=== PATIENT | female | born 1965 | race Caucasian/White ===

== ENCOUNTER 2021-12-09 07:23 | Outpatient (CLI) | payer BC, SELFPAY ==
[2021-12-09 15:07] LABS: Potassium* 4.1 mmol/L (3.6-5.1)
== END 2021-12-09 07:24 | disposition home or self-care (01) ==
PROVIDERS: PCP Physician Assistant Medical; Visit Provider Physician Assistant Medical
DX: E87.5 Hyperkalemia (principal); E78.5 Hyperlipidemia, unspecified
CPT/HCPCS: 84132

== ENCOUNTER 2022-01-30 15:00 | Outpatient (CLI) | payer BC, SELFPAY ==
--- NOTE | 2022-01-30 15:20 | CRLHL7_ITS ---
For Patients: As a result of the Century Cures Act, medical imaging exams and procedure reports are released immediately into your electronic medical record. You may view this report before your referring provider. If you have questions, please contact your health care provider. BILATERAL SCREENING MAMMOGRAM WITH COMPUTER-AIDED DETECTION AND TOMOSYNTHESIS TECHNIQUE: CC and MLO views were obtained. These mammographic images have been obtained using full-field digital technique. These mammographic images were interpreted with the benefit of computer-aided detection. Breast Tomosynthesis was used in this interpretation. COMPARISON FILM: 01/29/20 Diagnostic, 01/22/21 screen, 12/28/19 screen. FINDINGS: There are scattered areas of fibroglandular density IMPRESSION: There is no radiographic evidence for malignancy. ASSESSMENT: BI-RADS Category 2: Benign RECOMMENDATION: Routine screening mammogram in 1 year. A lay language report of this examination will be provided to the patient. Alin Paredes M.D. Diagnostic Radiologist [email or web address] RENETTA/Dictated by: Alin Paredes MD @ 01/31/2022 8:51:00 AM (Electronically Signed)
== END 2022-01-30 15:01 | disposition home or self-care (01) ==
LOC: MAMMO 15:00
PROVIDERS: PCP Physician Assistant Medical; Visit Provider Physician Assistant Medical
DX: Z12.31 Encounter for screening mammogram for malignant neoplasm of breast (principal)
CPT/HCPCS: 77063; 77067

== ENCOUNTER 2022-02-27 14:45 | Outpatient (RCR) | payer BC, SELFPAY ==
[2021-11-28 08:43] LABS: Hemoglobin* 13.8 gm/dL (12.0-16.0); Mean Corpuscular HGB Conc 34 gm/dL (32-36); Mean Corpuscular Hemoglobin 30 pg (26-34); Mean Corpuscular Volume 90 fL (80-100); Platelet Count* 244 K/uL (140-440); Red Blood Count 4.56 m/uL (4.00-5.20); White Blood Count* 4.91 K/uL (4.50-11.00)
[2021-11-28 08:47] LABS: Slide Review Reflex No
[2021-11-28 09:34] LABS: Albumin* 4.4 g/dL (3.3-5.0); Chloride* 106 mmol/L (96-114); Potassium* 5.2 mmol/L (3.6-5.1); Sodium* 144 mmol/L (135-149)
[2021-11-28 09:36] LABS: Cholesterol* 172 mg/dL (90-199)
[2021-11-28 09:37] LABS: Alanine Aminotransferase* 25 U/L (4-35); Alkaline Phosphatase* 89 U/L (40-150); Aspartate Amino Transferase* 25 U/L (12-35); Bilirubin Total* 0.5 mg/dL (0.1-1.5); Blood Urea Nitrogen* 14 mg/dL (7-30); Calcium* 10.2 mg/dL (8.4-10.6); Carbon Dioxide* 30 mmol/L (20-32); Creatinine* 0.8 mg/dL (0.5-1.5); Estimated Glomerular Filt Rate 86 ml/min; Glucose* 97 mg/dL (60-115); HDL Cholesterol* 47 mg/dL (>=50); LDL Cholesterol Calculated 81 mg/dL (<100); Total Protein* 6.9 g/dL (6.0-8.3); Triglycerides* 221 mg/dL (40-149)
--- NOTE | 2022-02-19 16:47 | ONC.NURNOTE ---
Pt took last pill of Anastrazole last night; called for refill today. She RTC next . Kelsea Mejias APRN to call in refill to bridge her to that appt; pt to call us back if any issues refilling.
== END 2022-05-27 23:59 | disposition home or self-care (01) ==
LOC: CCIC 14:45
PROVIDERS: PCP Physician Assistant Medical; Visit Provider Nurse Practitioner Family
DX: C50.912 Malignant neoplasm of unspecified site of left female breast (principal); Z17.0 Estrogen receptor positive status [ER+]; Z79.811 Long term (current) use of aromatase inhibitors
CPT/HCPCS: 36415; 80053; 80061; 85027; 99212; 99214

== ENCOUNTER 2023-01-02 07:45 | Outpatient (CLI) | payer BC, SELFPAY | END 2023-01-02 07:46 | disposition home or self-care (01) | LOC: NFLDREF 13:11 | PROVIDERS: PCP Physician Assistant Medical; Referring Provider Physician Assistant Medical; Visit Provider Physician Assistant Medical | DX: Z00.00 Encounter for general adult medical examination without abnormal findings (principal); C50.912 Malignant neoplasm of unspecified site of left female breast; E78.2 Mixed hyperlipidemia; I10 Essential (primary) hypertension | CPT/HCPCS: 80053; 80061; 84443 ==

== ENCOUNTER 2023-03-16 14:10 | Outpatient (RCR) | payer BC, SELFPAY | END 2023-03-31 23:59 | disposition home or self-care (01) | LOC: CCIC 14:10 | PROVIDERS: PCP Physician Assistant Medical; Visit Provider Physician Assistant | DX: C50.912 Malignant neoplasm of unspecified site of left female breast (principal); Z17.0 Estrogen receptor positive status [ER+]; Z79.811 Long term (current) use of aromatase inhibitors; Z90.13 Acquired absence of bilateral breasts and nipples; D05.11 Intraductal carcinoma in situ of right breast; M19.90 Unspecified osteoarthritis, unspecified site; R59.1 Generalized enlarged lymph nodes | CPT/HCPCS: 99212; 99213; 99214; 99215 ==

== ENCOUNTER 2023-09-24 12:43 | Outpatient (CLI) | payer BC, SELFPAY ==
--- OUTSIDE RECORDS SUMMARY | 2023-09-24 12:45 | XMS_ITS | Encounter Summary ---
Author Organization [facility] Address [address] [place] [address] Care Team Providers Care Cyber Policy And Strategy Planner Name Role Phone Elsewhere, Pcp Primary Care Provider Unavailabl e Encounter Details Date Type Department Care Team (Latest Contact Info) Description 08/04/2023 12:00 PM CDT Ancillary Procedure Department of Plastic and Reconstructive Surgery Social History Tobacco Use Types Packs/Day Years Used Date Smoking Tobacco: Never Smokeless Tobacco: Never Alcohol Use Standard Drinks/Week Comments Not Currently 0 (1 standard drink = 0.6 oz pur e alcohol) No alcohol since June 2022 Humiliation, Afraid, Rape, and Kick questionnair e Answer Date Recorded Within the last year, have y ou been afraid of your partner or ex-partner? No 09/04/2022 Within the last year, have y ou been humiliated or emotionally abused in other ways by your partner or ex-partner? No Within the last year, have y ou been kicked, hit, slapped, or otherwise physically hurt by your partner or ex-partner? No 09/04/2022 Within the last year, have y ou been raped or forced to have any kind of sexual activity by your partner or ex-partner? No 09/04/2022 Social Connection and Isolation Panel [NHANES] A nswer Date Recorded In a typical week, how many times do you talk on the phone with family, friends, or neighbors? Once a week 06/17/2022 How often do you get togethe r with friends or relatives? Once a week 06/17/2022 How often do you attend sikhism or jew serv ices? Patient declined 06/17/2022 Do you belong to any clubs o r organizations such as sikhism groups, unions, fraternal or athletic groups, or school groups? Yes 06/17/2022 How often do you attend meet ings of the clubs or organizations you belong to? Patient declined 06/17/2022 Are you , , di vorced, , never , or living with a partner? 06/17/2022 AUDIT-C Answer Date Recorded Q1: How often do you have a drink containing alc ohol? 2-4 times a month 06/17/2022 Q2: How many drinks containi ng alcohol do you have on a typical day when you are drinking? 1 or 2 06/17/2022 Q3: How often do you have si x or more drinks on one occasion? Never 06/17/2022 Overall Financial Resource Strain (CARDIA) Answe r Date Recorded How hard is it for you to pa y for the very basics like food, housing, medical care, and heating? Not hard at all 09/04/2022 [facility] - Occupational Stress Questionnaire Answer Date Recorded Do you feel stress - tense, restless, nervous, or anxious, or unable to sleep at night because your mind is troubled all the time - these days? Only a little 06/17/2022 Exercise Vital Sign Answer Date Recorde d On average, how many days pe r week do you engage in moderate to strenuous exercise (like a brisk walk)? 4 days 06/17/2022 On average, how many minutes do you engage in exercise at this level? 60 min 06/17/2022 Hunger Vital Sign Answer Date Recorded Within the past 12 months, y ou worried that your food would run out before you got the money to buy more. Never true 09/05/19 23 Within the past 12 months, t he food you bought just didn't last and you didn't have money to get more. Never true 09/04/2022 PRAPARE - Transportation Answer Date Re corded In the past 12 months, has l ack of transportation kept you from medical appointments or from getting medications? No 08/12 In the past 12 months, has l ack of transportation kept you from meetings, work, or from getting things needed for daily living? No 09/04/2022 Nutrition Answer Date Recorded Nutrition: EVOO Fat Source Yes 06/17 On average, how many serving s of fruits and vegetables do you eat per day (serving size is equal to 1 cup or approximately the size of a tennis ball)? 2-3 06/17/2022 Dental Answer Date Recorded Dental: Regular Dentist Yes 08/12/19 Employment Answer Date Recorded Employment status Employed and actively working without restrictions 06/17/2022 Housing Stability Answer Date Recorded What is your living situation today? I have a [facility] place to live 09/04/2022 Education Answer Date Recorded What is the highest level of school you have completed or the highest degree you have received? 12th grade 08/11/2021 Sex and Gender Information Value Date Recorded Sex Assigned at Female 08/11/2021 11:57 AM CDT Gender Identity Female 08/11/2021 11:57 AM CDT Sexual Orientation Straight 08/11/2021 11 :57 AM CDT documented as of this encounter Plan of Treatment Upcoming Encounters Date Type Department Care Team (Late st Contact Info) Description 09/30/2023 8:00 AM CDT Procedure visit Division of Plastic Surgery in [place], [place] [address] [place] [address] Jackie Lees M.D. [address] [place] [address] documented as of this encounter Procedures Procedure Name Priority Date/Time Associated Diagnosis Comments PLASTIC AND RECON SURGERY IMAGE EXAM Routine 08/04/2023 12:00 PM CDT documented in this encounter Results * Breast-Plastic And Recon Surgery Image Exam (08/04/2023 12:00 PM CDT) 08/04/2023 12:0 0 PM CDT Narrative IIMS - 08/04/2023 2:13 PM CDT This order has been created and auto-finalized to support the import of images acquired without order. The clinical documentation to support these images can be found on the encounter that produced images. Provider Not In System IMG NON RAD IMAGI NG PROCEDURES IIMS NA documented in this encounter Visit Diagnoses Not on filedocumented in this encounter Care Teams Cyber Policy And Strategy Planner Relationship Specialty Start Date End Date Elsewhere, Pcp PCP - General Internal Medicine 10/28/21 documented as of this encounter
--- OUTSIDE RECORDS SUMMARY | 2023-09-24 12:45 | XMS_ITS | Referral Summary ---
Author Organization [facility] Address [address] [place] [address] Care Team Providers Care Ramp Service Employee Name Role Phone Elsewhere, Pcp Primary Care Provider Unavailabl e Source Comments Patient records contain information from all sites at [facility]. For routine questions regarding patient records, call [phone] during business hours, M-F 8:00 AM - 5:00 PM Central Time. Record requests for emergency care only can be directed to [phone] at any time.[facility] Encounters Date Type Department Care Team Description 08/04/2023 12:00 PM CDT Ancillary Procedure Department of Plastic and Reconstructive Surgery 08/04/2023 12:45 PM CDT [facility] in [place], [place] [address] [place] [address] Jackie Lees M.D. Absence Of Breast Acquired Bilateral (Primary Dx) from Last 3 Months Allergies Active Allergy Reactions Criticality Noted Date Comments Pollen Extracts Other (see comments) Low 08/14/2021 Runny nose, itchy eyes Sulfa (Sulfonamide Antibiotics) Rash Low 02/22/2018 Medications Medication Sig Dispensed Refills Start Date End Date Status atorvastatin (LIPITOR) 10 mg tablet Take 10 mg by mouth at bedtime. 06/17/2021 Active cetirizine (ZyrTEC) 10 mg tablet Take 10 mg by mouth daily. Active hydroCHLOROthiazide (HYDRODIURIL) 12.5 mg tablet Take 12.5 mg by mouth daily. 06/04/2021 Active losartan (COZAAR) 50 mg tablet Take 50 mg by mouth daily. 05/14/2021 Active xsuhehjlpwhj-Lq-lyar- minerals tablet Take 1 tablet by mouth daily. Active fluticasone propionate (FLONASE) 50 mcg/actuation nasal spray Administer 1 spray into each nostril as needed for rhinitis or allergies. Active anastrozole (ARIMIDEX) 1 mg tablet Take 1 tablet (1 mg total) by mouth daily. Hold for 2 weeks after surgery 0 07/25/2022 Active calcium carbonate 1,500 mg (600 mg calcium) tablet Take 600 mg of calcium by mouth daily with breakfast. Active aspirin [address] tablet Take 1 tablet (81 mg total) by mouth daily. Hold for 48 hours after surgery 03/20/2023 Active ondansetron ODT (ZOFRAN-ODT) 4 mg disintegrating tablet Dissolve 1 tablet (4 mg total) in the mouth every 8 (eight) hours as needed for nausea or vomiting. 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 on 07/16/2021 Immunizations Name Administration Dates Next Due RZV (SHINGRIX) 02/01/2021,11/17/2020 SARS-COV-2 (COVID-19) - MODERNA(Discontinued) 04/18/2021 Td (Adult), adsorbed 11/25/2018 Tdap 09/25/2008 influenza vaccine quad (FLUZONE/FLUARIX) (6 months and older)(PF) 01/09/2021,12/30/2019,02/18/2018, 017,01/31/2016,01/26/2015,02/11/2013,,01/21/2011,02/14/2009 Social History Tobacco Use Types Packs/Day Years Used Date Smoking Tobacco: Never Smokeless Tobacco: Never Tobacco Cessation:Counseling Given: Not Answered Alcohol Use Standard Drinks/Week Comments Not Currently [...] week 06/17/2022 How often do you attend buddhism or islam serv ices? Patient declined 06/17/2022 Do you belong to any clubs o r organizations such as buddhism groups, unions, fraternal or athletic groups, or [...] and heating? Not hard at all 09/04/2022 [facility]at [facility] - Occupational Stress [...] your living situation today? I [place] a [facility] [place] place to live 09/04/2022 Education Answer Date Recorded What is the highest level of school you have completed or the highest degree you have received? 12th grade 08/11/2021 Sex and Gender Information Value Date Recorded Sex Assigned at Female 08/11/2021 11:57 AM CDT Gender Identity Female 08/11/2021 11:57 AM CDT Sexual Orientation Straight 08/11/2021 11 :57 AM CDT Last Filed Vital Signs Vital Sign Reading Time Taken Comments Blood Pressure 137/81 03/20/2023 3:49 PM RAILCAR SWITCHER Pulse 87 03/20/2023 3:49 PM RAILCAR SWITCHER Temperature 37.3 ??C (99.1 ??F) 03/20/2023 3:49 PM CS T Respiratory Rate 16 03/20/2023 3:49 PM RAILCAR SWITCHER Oxygen Saturation 95% 03/20/2023 3:49 PM RAILCAR SWITCHER Inhaled Oxygen Concentration - - Weight 75.9 kg (167 lb 5.3 oz) 03/20/2023 6:24 A M RAILCAR SWITCHER Height 163 cm (5' 4.17) 03/20/2023 6:24 AM RAILCAR SWITCHER Body Mass Index 28.57 03/20/2023 6:24 AM RAILCAR SWITCHER Plan of Treatment Upcoming Encounters Date Type Department Care Team (Late st Contact Info) Description 09/30/2023 8:00 AM CDT Procedure visit Division of Plastic Surgery in [place], [place] [address] [place] [address] Jackie Lees M.D. [address] [place] [address] Medical Devices Implanted Type Area Fold Skiver Device Identifier Shelf Expiration Date Model / Serial / Lot Clp Odessa Ti Spr Mcr 1.5 - [id number] Implanted:Qty : 1 on 07/23/2022 by Jackie Lees M.D. at [facility] Hardware e.g. pins/screws /rods [employer] [id number] / / Clp Odessa Ti Spr Mcr 1.5 - [id number] Implanted:Qty : 1 on 07/23/2022 by Jackie Lees M.D. at [facility] Hardware e.g. pins/screws /rods [employer] [id number] / / Clp Odessa Ti Spr Mcr 1.5 - [id number] Implanted:Qty : 1 on 07/23/2022 by Jackie Lees M.D. at [facility] Hardware e.g. pins/screws /rods [employer] [id number] / / Clp Odessa Ti Spr Mcr 1.5 - [id number] Implanted:Qty : 1 on 07/23/2022 by Jackie Lees M.D. at [facility] Hardware e.g. pins/screws /rods [employer] [id number] / / Clp Odessa Ti Spr Mcr 1.5 - [id number] Implanted:Qty : 1 on 07/23/2022 by Jackie Lees M.D. at [facility] Hardware e.g. pins/screws /rods [employer] [id number] / / Clp Odessa Ti Spr Mcr 1.5 - [id number] Implanted:Qty : 1 on 07/23/2022 by Jackie Lees M.D. at [facility] Hardware e.g. pins/screws /rods [employer] [id number] / / Clp Odessa Ti Spr Mcr 1.5 - [id number] Implanted:Qty : 1 on 07/23/2022 by Jackie Lees M.D. at [facility] Hardware e.g. pins/screws /rods [employer] [id number] / / Clp Odessa Ti Spr Mcr 1.5 - [id number] Implanted:Qty : 1 on 07/23/2022 by Jackie Lees M.D. at [facility] Hardware e.g. pins/screws /rods [employer] [id number] / / Clp Hrzn Ti 24 Clp Md Ck - [id number] Implanted:Qty : 1 on 07/23/2022 by Jackie Lees M.D. at [facility] Hardware e.g. pins/screws /rods [employer] [id number] / / Clp Hrzn Ti 24 Clp Sm Red - [id number] Implanted:Qty : 1 on 07/23/2022 by Jackie Lees M.D. at [facility] Hardware e.g. pins/screws /rods [employer] [id number] / / Clp Odessa Ti Mcr - [id number] Implanted:Qty : 1 on 07/23/2022 by Jackie Lees M.D. at [facility] Hardware e.g. pins/screws /rods [employer] [id number] / / Clp Hrzn Ti 24 Clp Sm Red - [id number] Implanted:Qty : 1 on 07/23/2022 by Jackie Lees M.D. at [facility] Hardware e.g. pins/screws /rods [employer] [id number] / / Clp Hrzn Ti 24 Clp Sm Red - [id number] Implanted:Qty : 1 on 07/23/2022 by Jackie Lees M.D. at [facility] Hardware e.g. pins/screws /rods [employer] [id number] / / Clp Hrzn Ti 24 Clp Sm Red - [id number] Implanted:Qty : 1 on 07/23/2022 by Jackie Lees M.D. at [facility] Hardware e.g. pins/screws /rods [employer] [id number] / / Clp Odessa Ti Mcr - [id number] Implanted:Qty : 1 on 07/23/2022 by Jackie Lees M.D. at [facility] Hardware e.g. pins/screws /rods [employer] [id number] 10/10/2026 [id number] / / [id number] Clp Odessa Ti Mcr - [id number] Implanted:Qty : 1 on 07/23/2022 by Jackie Lees M.D. at [facility] Hardware e.g. pins/screws /rods [employer] [id number] 10/10/2026 [id number] / / [id number] Clp Odessa Ti Mcr - [id number] Implanted:Qty : 1 on 07/23/2022 by Jackie Lees M.D. at [facility] Hardware e.g. pins/screws /rods [employer] [id number] 10/10/2026 [id number] / / [id number] Clp Odessa Ti Mcr - [id number] Implanted:Qty : 1 on 07/23/2022 by Jackie Lees M.D. at [facility] Hardware e.g. pins/screws /rods [employer] [id number] 10/10/2026 [id number] / / [id number] Clp Odessa Ti Spr Mcr 1.5 - [id number] Implanted:Qty : 1 on 07/23/2022 by Jackie Lees M.D. at [facility] Hardware e.g. pins/screws /rods [employer] [id number] 10/10/2026 [id number] / / [id number] Clp Odessa Ti Spr Mcr 1.5 - [id number] Implanted:Qty : 1 on 07/23/2022 by Jackie Lees M.D. at [facility] Hardware e.g. pins/screws /rods [employer] [id number] 10/10/2026 [id number] / / [id number] Web Site Project Manager Flow 3.0 - [id number] Implanted:Qty : 1 on 07/23/2022 by Jackie Lees M.D. at [facility] Hardware e.g. pins/screws /rods Left: Breast [employer] [id number] 05/28/2027 [id number] C / / [id number] Clp Odessa Ti Mcr - [id number] Implanted:Qty : 1 on 07/23/2022 by Jackie Lees M.D. at [facility] Hardware e.g. pins/screws /rods [employer] [id number] / / Web Site Project Manager Flow 3.0 - [id number] Implanted:Qty : 1 on 07/23/2022 by Jackie Lees M.D. at [facility] Hardware e.g. pins/screws /rods Right: Breast [employer] [id number] 05/28/2027 [id number] C / / [id number] Web Site Project Manager Flow 3.0 - [id number] Implanted:Qty : 1 on 07/23/2022 by Jackie Lees M.D. at [facility] Hardware e.g. pins/screws /rods Right: Breast [employer] [id number] 05/09/2027 [id number] C / / [id number] Clp Odessa Ti Mcr - [id number] Implanted:Qty : 1 on 07/23/2022 by Jackie Lees M.D. at [facility] Hardware e.g. pins/screws /rods [employer] [id number] / / Clp Odessa Ti Mcr - [id number] Implanted:Qty : 1 on 07/23/2022 by Jackie Lees M.D. at [facility] Hardware e.g. pins/screws /rods [employer] [id number] / / Clp Odessa Ti Mcr - [id number] Implanted:Qty : 1 on 07/23/2022 by Jackie Lees M.D. at [facility] Hardware e.g. pins/screws /rods [employer] [id number] / / Clp Odessa Ti Mcr - [id number] Implanted:Qty : 1 on 07/23/2022 by Jackie Lees M.D. at [facility] Hardware e.g. pins/screws /rods [employer] [id number] / / Clp Odessa Ti Mcr - [id number] Implanted:Qty : 1 on 07/23/2022 by Jackie Lees M.D. at [facility] Hardware e.g. pins/screws /rods [employer] [id number] / / Clp Odessa Ti Mcr - [id number] Implanted:Qty : 1 on 07/23/2022 by Jackie Lees M.D. at [facility] Hardware e.g. pins/screws /rods [employer] [id number] / / Explanted Type Area Fold Skiver Device Identifier Shelf Expiration Date Model / Serial / Lot Jaida 133s Tissue Water Superintendent, Smooth Full Height, 600cc Implanted:Qty : 1 on 10/28/2021 by Jackie Lees M.D. at [facility] Explanted:Qty : 1 on 07/23/2022 by Jackie Lees M.D. at [facility] Breast Implant Left: Breast [employer] 04/14/2026 [id number] / [id number] / Procedures Procedure Name Priority Date/Time Associated Diagnosis Comments PLASTIC AND RECON SURGERY IMAGE EXAM Routine 08/04/2023 12:00 PM CDT ELECTROLYTE (CHEM 4) PANEL, S/P Routine 07/24/2022 3:36 AM CDT BI BREAST SCREENING RIGHT WITH TOMOSYNTHESIS RAD - Routine (most inpatients and all outpatients) 06/24/2022 11:29 AM CDT Malignant Neoplasm Of Breast Central Female Left (HCC) BASIC METABOLIC PANEL, S/P Routine 06/24/2022 8:03 AM CDT Absence Of Breast Acquired Left from Last 3 Months or Most Recently Relevant to Health Maintenance Results * Breast-Plastic And Recon Surgery Image [...] NON RAD IMAGI NG PROCEDURES IIMS NA * Electrolyte (Chem 4) Panel (07/24/2022 3:36 AM CDT) Potassium, P 3.9 3.6 - 5.2 mmol/L 07/24/2022 4:14 AM CDT DTL Sodium, P 136 135 - 145 mmol/L 07/24/2022 4:14 AM CDT DTL Chloride, P 103 98 - 107 mmol/L 07/24/2022 4:14 AM CDT DTL Bicarbonate, P 24 22 - 29 mmol/L 07/24/2022 4:14 AM CDT DTL Anion Gap, P 9 7 - 15 07/24/2022 4:14 AM CDT DTL Blood (Blood, Venous) 07/24/2022 3:36 AM CDT 07/24/2022 4:05 AM CDT Wei Chua M.D. LAB BLOOD ADD-ON [facility] [address] [place] [address], [place] DTL [facility] [address] [place] [address] * BI Breast Screening Right with Tomosynthesis (06/24/2022 11:29 AM CDT) Anatomical Region Laterality Modality Breast, Breast Imaging RST L OS, Breast Imaging ARZ LOS, Breast Imaging FLA LOS Right Mammography 06/24/2022 1:13 PM CDT Impressions 06/24/2022 2:02 PM CDT Benign. RECOMMENDATION: ??Annual Screening Mammogram ASSESSMENT: ??BI-RADS: 2: Benign. Narrative 06/24/2022 2:02 PM CDT EXAM: ??BI BREAST SCREENING RIGHT WITH TOMOSYNTHESIS Current study was evaluated with a Computer Aided Detection (CAD) system. INDICATION: ??Screening mammogram. COMPARISON: ??Prior exam(s) were available and reviewed for comparison. DENSITY: ??b. There are scattered areas of fibroglandular density. FINDINGS: ??No mammographic findings of malignancy. Postlumpectomy changes. Procedure Note Kenton Mujica M.D., Ph.D. - 06/24/2022 EXAM: BI BREAST SCREENING RIGHT WITH TOMOSYNTHESIS Current study was evaluated with a Computer Aided Detection (CAD) system. INDICATION: Screening mammogram. COMPARISON: Prior exam(s) were available and reviewed for comparison. DENSITY: b. There are scattered areas of fibroglandular density. FINDINGS: No mammographic findings of malignancy. Postlumpectomychanges. IMPRESSION: Benign. RECOMMENDATION: Annual Screening Mammogram ASSESSMENT: BI-RADS: 2: Benign. Jackie Lees M.D. IMG BI PROCEDURE S * (ABNORMAL) Basic Metabolic Panel (06/24/2022 8:03 AM CDT) Pathologist Omar Frost 4.4 3.6 - 5.2 mmol/L 06/24/2022 9:10 AM CDT DTL Sodium, S 145 135 - 145 mmol/L 06/24/2022 9:10 AM CDT DTL Chloride, S 106 98 - 107 mmol/L 06/24/2022 9:10 AM CDT DTL Bicarbonate, S 27 22 - 29 mmol/L 06/24/2022 9:10 AM CDT DTL Anion Gap 12 7 - 15 06/24/2022 9:10 AM CDT DTL BUN (Blood Urea Nitrogen), S 16 6 - 21 mg/dL 06/24/2022 9:10 AM CDT DTL Creatinine 0.89 0.59 - 1.04 mg/dL 06/24/2022 9:10 AM CDT DTL Estimated GFR (eGFR) 76 >=60 mL/min/BSA 06/24/2022 9:10 AM CDT DTL Comment: Estimated GFR calculated using the 2020 CKD_EPI creatinine equation. Calcium, Total, S 10.4(H) 8.6 - 10.0 mg/dL 06/24/2022 9:10 AM CDT DTL Glucose, S 99 70 - 140 mg/dL 06/24/2022 9:10 AM CDT DTL Blood (Blood, Venous) 06/24/2022 8:03 AM CDT 06/24/2022 8:38 AM CDT Jackie Lees M.D. LAB BLOOD ADD-ON [facility] [address] [place] [address], [facility] [address] [place] [address] from Last 3 Months or Most Recently Relevant to Health Maintenance Care Teams Ramp Service Employee Relationship Specialty Start Date End Date Elsewhere, Pcp PCP - General Internal Medicine 10/28/21
--- OUTSIDE RECORDS SUMMARY | 2023-09-24 12:45 | XMS_ITS | Encounter Summary ---
Author Organization [facility] Address [address] [place] [address] Care Team Providers Care Hard Candy Spinner Name Role Phone Elsewhere, Pcp Primary Care Provider Unavailabl e Reason for Referral * Outpatient (Routine) - Authorized Specialty Diagnoses / Procedures Referred By Contac t Referred To Contact Diagnoses Absence Of Breast Acquired Bilateral Procedures Minor Misc Procedure Jackie Lees M.D. [address] [place] [address] [facility] Referral ID Status Reason Start Date Expiration Date V isits Requested Visits Authorized [id number] Authorized 08/05/2023 08/04/2024 1 1 Reason for Visit * Outpatient (Routine) - Closed Specialty Diagnoses / Procedures Referred By Contac t Referred To Contact Plastic Surgery Chrissy Joyner, ROLF, P.A.-C. [address] [place] [phone] Jackie Lees M.D. [address] [place] [phone] Referral ID Status Reason Start Date Expiration Date Visits Re quested Visits Authorized [id number] Closed 04/27/2023 04/26/2026 1 1 Encounter Details Date Type Department Care Team ([facility] st Contact Info) Description 08/04/2023 12:45 PM CDT [facility] in [place], [place] [address] [place] [address] [place] [address] Absence Of Breast Acquired Bilateral (Primary Dx) Social History Tobacco Use Types Packs/Day Years [...] How often do you attend sikhism or zoroastrianism serv ices? Patient declined 06/17/2022 Do you [...] and heating? Not hard at all 09/04/2022 [facility] - Occupational Stress Questionnaire Answer Date Recorded [...] money to buy more. Never true 09/05/19 Within the past 12 months, t he [...] AM CDT documented as of this encounter Progress Notes * Mj Sue M.D. - 08/04/2023 12:45 PM CDT SUBJECTIVE CHIEF COMPLAINT/REASON FOR VISIT Maddie Bautista is a 57 y.o. female who presents for evaluation. HISTORY OF PRESENT ILLNESS 57F h/o R breast cancer s/p R lumpectomy and XRT 2008. Mar 2021 underwent L total mastectomy for L breast cancer. On October 2021 underwent left breast TE placement followed by right risk reducing NSM and BL JACOB reconstruction 07/23/22. Last procedure was BL JACOB flap revision, BL breast FG grafting Mar 20, 2023. She has required HBOT in the past due to difficulty healing R mastectomy skin after JACOB reconstruction. Patient reports that on the left breast she has a small standing cone which bothers her and would like addressed. She feels fully recovered from her JACOB procedure and is back to regular activity. The following portions of the patient's history were reviewed and updated as appropriate: allergies, current medications, family history, medical history, social history, surgical history and problemlist. Social History Tobacco Use Smoking status: Never Smokeless tobacco: Never REVIEW OF SYSTEMS Negative except as noted in HPI OBJECTIVE PHYSICAL EXAM General: Awake, alert, no acute distress Breasts: Well healed surgical incisions. No signs of infection or fluid collections. Left breast standing cone on the face of the breast centrally towards the upper end. Right breast softened. ASSESSMENT / PLAN It was a pleasure to see the patient in clinic today. We discussed the excision of the left breast standing cone could be removed in clinic under local anesthesia. This could also be combined with any revision procedures. We do have to extend the scar just a little bit in order to remove the standing cone. We discussed risks including bleeding, wound healing issues, unfavorable scarring, pain. Anaya plan to excise this in clinic, a date will be chosen to get this scheduled.. Photos obtained today. All patient questions and concerns were answered to the best of our ability. The patient was seen and examined with Dr. Lees. * Ashley Hua R.N. - 08/04/2023 12:45 PM CDT Photos were obtained. Patient reports desiring scar revision on her left breast. Dr. Lees requested minor OR for left breast wedge incision. Patient requested mid September if able. We will reach out with possible minor OR date. Patient verbalized understanding and agreement with the plan. All questions answered at this time. documented in this encounter Miscellaneous Notes * Addendum Note - Ashley Hua R.N. - 08/04/2023 12:45 PM CDTAddended by: ASHLEY HUA on: 08/05/2023 08:34 AM Modules accepted: Orders documented in this encounter Plan of Treatment Upcoming Encounters Date Type Department Care Team (Late st Contact Info) Description 09/30/2023 8:00 AM CDT Procedure visit Division of Plastic Surgery in [place], [place] [address] [place] [address] Jackie Lees M.D. [address] [place] [address] Scheduled Orders Name Type Priority Associated Diagnoses Orde r Schedule Minor Misc Procedure Procedures Routine Absence Of Breast Acquired Bilateral Expected: 09/30/2023, Expires: 11/03/2024 documented as of this encounter Visit Diagnoses Diagnosis Absence Of Breast Acquired Bilateral- Primary documented in this encounter Care Teams Hard Candy Spinner Relationship Specialty Start Date End Date Elsewhere, Pcp PCP - General Internal Medicine 10/28/21 documented as of this encounter
--- OUTSIDE RECORDS SUMMARY | 2023-09-24 12:45 | XMS_ITS | Clinical Summary ---
Author Organization [facility] Address [address] [place] [address] Care Team Providers Care Spinning Machine Operator Name Role Phone Elsewhere, Pcp Primary Care Provider Unavailabl e Source Comments Patient records contain information from all sites at [facility]. For routine questions regarding patient records, call [phone] during business hours, M-F 8:00 AM - 5:00 PM Central Time. Record requests for emergency care only can be directed to [phone] at any time.[facility] Allergies Active Allergy Reactions Criticality Noted Date [...] 50 mg by mouth daily. 05/14/2021 Active ftzcmlvlriex-Sh-wint- minerals tablet Take 1 tablet by mouth [...] Overview: Added automatically from request for surgery [id number] Hyperlipidemia 05/02/2022 Hypertension Essential Primary 05/02/2022 Malignant Neoplasm Of Breast Central Female Left 07/16/2021 Cancer Staging:Pathologic stage from 03/19/2021:Stage IA(pT1c, pN0, cM0, G2, ER+, NV-, HER2-, Oncotype DX score: 27) - Signed by ChattoogaCarole Banuelos, CHANI, C.N.P., M.S.N. on 07/16/2021 Encounters Date Type Department Care Team Description 08/04/2023 12:45 PM CDT [facility] in [place] [address] [place] [address] Jackie Lees M.D. Absence Of Breast Acquired Bilateral (Primary Dx) 08/04/2023 12:00 PM CDT Ancillary Procedure Department of Plastic and Reconstructive Surgery from Last 3 Months Immunizations Name Administration Dates Next Due RZV (SHINGRIX) 02/01/2021,11/17/2020 SARS-COV-2 (COVID-19) - MODERNA(Discontinued) 04/18/2021 Td (Adult), adsorbed 11/25/2018 Tdap 09/25/2008 influenza vaccine quad (FLUZONE/FLUARIX) (6 months and older)(PF) 01/09/2021,12/30/2019,02/18/2018, 017,01/31/2016,01/26/2015,02/11/2013,,01/21/2011,02/14/2009 Family History Medical History Relation Name Comments Leukemia Brother 1 Robert Stroke Brother 2 Juan Coronary artery disease Father Tutu Diabetes Father Tutu Hyperlipidemia Father Tutu Hypertension Father [place]u Breast cancer Father's Sister Niru Diabetes Mother Amanda Hyperlipidemia Mother Amanda Hypertension Mother Amanda Osteoporosis Mother Amanda Bladder cancer Uncle Prostate cancer Uncle Relation Name Status Comments Brother 1 Robert Brother 2 Juan Father Tutu Father's Sister Niru Mother Amanda Uncle Alive Paternal uncle Social History Tobacco Use Types Packs/Day Years [...] week 06/17/2022 How often do you attend yazidi or taoist serv ices? Patient declined 06/17/2022 Do you belong to any clubs o r organizations such as yazidi groups, unions, fraternal or athletic groups, or [...] and heating? Not hard at all 09/04/2022 [facility] - Occupational [...] your living situation today? I have a [facility] place to live 09/04/2022 Education Answer [...] Comments Blood Pressure 137/81 03/20/2023 3:49 PM FLIGHT COMMUNICATIONS OFFICER Pulse 87 03/20/2023 3:49 PM FLIGHT COMMUNICATIONS OFFICER Temperature 37.3 ??C (99.1 ??F) 03/20/2023 3:49 PM CS T Respiratory Rate 16 03/20/2023 3:49 PM FLIGHT COMMUNICATIONS OFFICER Oxygen Saturation 95% 03/20/2023 3:49 PM FLIGHT COMMUNICATIONS OFFICER Inhaled Oxygen Concentration - - Weight 75.9 kg (167 lb 5.3 oz) 03/20/2023 6:24 A M FLIGHT COMMUNICATIONS OFFICER Height 163 cm (5' 4.17) 03/20/2023 6:24 AM FLIGHT COMMUNICATIONS OFFICER Body Mass Index 28.57 03/20/2023 6:24 AM FLIGHT COMMUNICATIONS OFFICER Plan of Treatment Upcoming Encounters Date Type Department Care Team (Late st Contact Info) Description 09/30/2023 8:00 AM CDT Procedure visit Division of Plastic Surgery in [place], [place] [address] [place] [address] Jackie Lees M.D. [address] [place] [address] Health Maintenance Due Date Last Done Comments CT Colonography 1965 Cologuard 1965 Colonoscopy 1965 Colorectal Cancer Screening 1965 FIT 1965 HIV Screening 1965 Hepatitis C Screening 1965 Lipid (Cholesterol) Screening 1965 Office Visit for Blood Pressure Check / Re-check 1965 Hepatitis B Vaccines (1 of 3 - 19+ 3-dose series) 1984 Cervical Cancer Screening 11/25/2021 11/25/2018 Depression Screening (Annual PHQ-2) 04/13/2023 Creatinine Level (Kidney Function Test) 06/25/2023 06/24/2022, 01/26/2022, 09/24/2021 Potassium Level 07/25/2023 07/24/2022, 06/24/2022 Sodium Level 07/25/2023 07/24/2022, 06/24/2022 Fasting Glucose for Diabetes Screening 06/24/2025 06/24/2022 DTaP,Tdap,and Td Vaccines (3 - Td or Tdap) 11/25/2028 11/25/2018, 09/25/2008 Zoster Vaccines Completed 02/01/2021, 11/17/2020 Mammogram Discontinued 06/24/2022, 01/12, 03/19/2021, Additional history exists Influenza Vaccine Completed 11/25/2022, , 12/30/2019, Additional history exists COVID-19 Vaccine Completed 02/15/2023, , 08/30/2021, Additional history exists Pneumococcal vaccine (0-64 years) Aged Out No longer eligible based on patient's age to complete this topic Medical Devices Implanted Type Area Custom Wood Stair Builder Device Identifier Shelf Expiration Date Model / Serial / Lot Clp Mcpherson Ti Spr Mcr 1.5 - [id number] Implanted:Qty : 1 on 07/23/2022 by Jackie Lees M.D. at [facility] Hardware e.g. pins/screws /rods [employer] [id number] / / Clp Mcpherson Ti Spr Mcr 1.5 - [id number] Implanted:Qty : 1 on 07/23/2022 by Jackie Lees M.D. at [facility] Hardware e.g. pins/screws /rods [employer] [id number] / / Clp Mcpherson Ti Spr Mcr 1.5 - [id number] Implanted:Qty : 1 on 07/23/2022 by Jackie Lees M.D. at [facility] Hardware e.g. pins/screws /rods [employer] [id number] / / Clp Mcpherson Ti Spr Mcr 1.5 - [id number] Implanted:Qty : 1 on 07/23/2022 by Jackie Lees M.D. at [facility] Hardware e.g. pins/screws /rods [employer] [id number] / / Clp Mcpherson Ti Spr Mcr 1.5 - [id number] Implanted:Qty : 1 on 07/23/2022 by Jackie Lees M.D. at [facility] Hardware e.g. pins/screws /rods [employer] [id number] / / Clp Mcpherson Ti Spr Mcr 1.5 - [id number] Implanted:Qty : 1 on 07/23/2022 by Jackie Lees M.D. at [facility] Hardware e.g. pins/screws /rods [employer] [id number] / / Clp Mcpherson Ti Spr Mcr 1.5 - [id number] Implanted:Qty : 1 on 07/23/2022 by Jackie Lees M.D. at [facility] Hardware e.g. pins/screws /rods [employer] [id number] / / Clp Mcpherson Ti Spr Mcr 1.5 - [id number] Implanted:Qty : 1 on 07/23/2022 by Jackie Lees M.D. at [facility] Hardware e.g. pins/screws /rods [employer] [id number] / / Clp Hrzn Ti 24 Clp Md Ck - [id number] Implanted:Qty : 1 on 07/23/2022 by Jackie Lees M.D. at [facility] Hardware e.g. pins/screws /rods [employer] [id number] / / Clp Hrzn Ti 24 Clp Sm Red - [id number] Implanted:Qty : 1 on 07/23/2022 by Jackie Lees M.D. at [facility] Hardware e.g. pins/screws /rods [employer] [id number] / / Clp Mcpherson Ti Mcr - [id number] Implanted:Qty : 1 on 07/23/2022 by Jackie Lees M.D. at [facility] Hardware e.g. pins/screws /rods [employer] [id number] / / Clp Hrzn Ti 24 Clp Sm Red - [id number] Implanted:Qty : 1 on 07/23/2022 by Jackie Lees M.D. at [facility] Hardware e.g. pins/screws /rods [employer] [id number] / / Clp Hrzn Ti 24 Clp Sm Red - [id number] Implanted:Qty : 1 on 07/23/2022 by Jackie Lees M.D. at [facility] Hardware e.g. pins/screws /rods [employer] [id number] / / Clp Hrzn Ti 24 Clp Sm Red - [id number] Implanted:Qty : 1 on 07/23/2022 by Jackie Lees M.D. at [facility] Hardware e.g. pins/screws /rods [employer] [id number] / / Clp Mcpherson Ti Mcr - [id number] Implanted:Qty : 1 on 07/23/2022 by Jackie Lees M.D. at [facility] Hardware e.g. pins/screws /rods [employer] [id number] 10/10/2026 [id number] / / [id number] Clp Mcpherson Ti Mcr - [id number] Implanted:Qty : 1 on 07/23/2022 by Jackie Lees M.D. at [facility] Hardware e.g. pins/screws /rods [employer] [id number] 10/10/2026 [id number] / / [id number] Clp Mcpherson Ti Mcr - [id number] Implanted:Qty : 1 on 07/23/2022 by Jackie Lees M.D. at [facility] Hardware e.g. pins/screws /rods [employer] [id number] 10/10/2026 [id number] / / [id number] Clp Mcpherson Ti Mcr - [id number] Implanted:Qty : 1 on 07/23/2022 by Jackie Lees M.D. at [facility] Hardware e.g. pins/screws /rods [employer] [id number] 10/10/2026 [id number] / / [id number] Clp Mcpherson Ti Spr Mcr 1.5 - [id number] Implanted:Qty : 1 on 07/23/2022 by Jackie Lees M.D. at [facility] Hardware e.g. pins/screws /rods [employer] [id number] 10/10/2026 [id number] / / [id number] Clp Mcpherson Ti Spr Mcr 1.5 - [id number] Implanted:Qty : 1 on 07/23/2022 by Jackie Lees M.D. at [facility] Hardware e.g. pins/screws /rods [employer] [id number] 10/10/2026 [id number] / / [id number] Cable Tender Flow 3.0 - [id number] Implanted:Qty : 1 on 07/23/2022 by Jackie Lees M.D. at [facility] Hardware e.g. pins/screws /rods Left: Breast [employer] [id number] 05/28/2027 [id number] C / / [id number] Clp Mcpherson Ti Mcr - [id number] Implanted:Qty : 1 on 07/23/2022 by Jackie Lees M.D. at [facility] Hardware e.g. pins/screws /rods [employer] [id number] / / Cable Tender Flow 3.0 - [id number] Implanted:Qty : 1 on 07/23/2022 by Jackie Lees M.D. at [facility] Hardware e.g. pins/screws /rods Right: Breast [employer] [id number] 05/28/2027 [id number] C / / [id number] Cable Tender Flow 3.0 - [id number] Implanted:Qty : 1 on 07/23/2022 by Jackie Lees M.D. at [facility] Hardware e.g. pins/screws /rods Right: Breast [employer] [id number] 05/09/2027 [id number] C / / [id number] Clp Mcpherson Ti Mcr - [id number] Implanted:Qty : 1 on 07/23/2022 by Jackie Lees M.D. at [facility] Hardware e.g. pins/screws /rods [employer] [id number] / / Clp Mcpherson Ti Mcr - [id number] Implanted:Qty : 1 on 07/23/2022 by Jackie Lees M.D. at [facility] Hardware e.g. pins/screws /rods [employer] [id number] / / Clp Mcpherson Ti Mcr - [id number] Implanted:Qty : 1 on 07/23/2022 by Jackie Lees M.D. at [facility] Hardware e.g. pins/screws /rods [employer] [id number] / / Clp Mcpherson Ti Mcr - [id number] Implanted:Qty : 1 on 07/23/2022 by Jackie Lees M.D. at [facility] Hardware e.g. pins/screws /rods [employer] [id number] / / Clp Mcpherson Ti Mcr - [id number] Implanted:Qty : 1 on 07/23/2022 by Jackie Lees M.D. at [facility] Hardware e.g. pins/screws /rods [employer] [id number] / / Clp Mcpherson Ti Mcr - [id number] Implanted:Qty : 1 on 07/23/2022 by Jackie Lees M.D. at [facility] Hardware e.g. pins/screws /rods [employer] [id number] / / Explanted Type Area Custom Wood Stair Builder Device Identifier Shelf Expiration Date Model / Serial / Lot Jaida 133s Tissue Tester Armature Or Fields, Smooth Full Height, 600cc Implanted:Qty : 1 on 10/28/2021 by Jackie Lees M.D. at [facility] Explanted:Qty : 1 on 07/23/2022 by Jackie Lees M.D. at [facility] Breast Implant Left: Breast [employer] 04/14/2026 [id number] 4-T / [id number] / Procedures Procedure Name Priority Date/Time Associated [...] CDT Wei Chua M.D. LAB BLOOD ADD-ON [facility] [address] [place] [address], [facility] DTL [facility] [address] [place] [address] * BI Breast Screening Right with Tomosynthesis [...] Basic Metabolic Panel (06/24/2022 8:03 AM CDT) Potassium, S 4.4 3.6 - 5.2 mmol/L 06/24/2022 9:10 [...] CDT Jackie Lees M.D. LAB BLOOD ADD-ON [facility] [address] [place] [address], [facility] [address] [place] [address] from Last 3 Months or Most Recently Relevant to Health Maintenance Care Teams Spinning Machine Operator Relationship Specialty Start Date End Date Elsewhere, Pcp PCP - General Internal Medicine 10/28/21
--- OUTSIDE RECORDS SUMMARY | 2023-09-24 12:45 | XMS_ITS ---
Author Organization [facility] Address [address] [place] [address] Care Team Providers Care Fabrication Supervisor Name Role Phone Unavailable Unavailable Unavailable Surgery Details Not on file Complications Check Surgery Details section. Procedure Estimated Blood Loss Check Surgery Details section. Procedure Findings Check Surgery Details section. Procedure Specimens Taken Check Surgery Details section.
--- OUTSIDE RECORDS SUMMARY | 2023-09-24 12:45 | XMS_ITS | Clinical Summary ---
Author Organization [facility] Address [place], [place] [address] Care Team Providers Care Wire Weaver Cloth Name Role Phone Pcp, No Primary Care Provider Unavailabl e Allergies Active Allergy Reactions Criticality Noted Date Comments Sulfa (Sulfonamide Antibiotics) Rash 02/11 Medications Medication Sig Dispensed Refills Start Date End Date Status atorvastatin (LIPITOR) 10 mg tablet Take 10 mg by mouth at bedtime. 3 01/07/2018 Active losartan-hydrochloroth iazide, 50-12.5 mg, (HYZAAR) 50-12.5 mg tablet Take 1 tablet by mouth once daily. 2 12/23/2017 Active Social History Tobacco Use Types Packs/Day Years Used Date Smoking Tobacco: Never Smokeless Tobacco: Never Sex and Gender Information Value Date Recorded Sex Assigned at Not on file Gender Identity Not on file Sexual Orientation Not on file Obstetrics History Last Filed Vital Signs Vital Sign Reading Time Taken Comments Blood Pressure 160/96 02/22/2018 3:09 PM SOCIAL MEDIA CAMPAIGN MANAGER Pulse 94 02/22/2018 3:09 PM SOCIAL MEDIA CAMPAIGN MANAGER Temperature - - Respiratory Rate - - Oxygen Saturation - - Inhaled Oxygen Concentration - - Weight 81.2 kg (179 lb) 02/22/2018 3:09 PM SOCIAL MEDIA CAMPAIGN MANAGER Height 162.6 cm (5' 4) 02/22/2018 3:09 PM SOCIAL MEDIA CAMPAIGN MANAGER Body Mass Index 30.73 02/22/2018 3:09 PM SOCIAL MEDIA CAMPAIGN MANAGER Plan of Treatment Health Maintenance Due Date Last Done Comments Tdap 1976 Depression screening for age 12+ 1977 HIV for age 15-65 1980 Hepatitis C screening for age 18-79 11/10/1983 Tetanus booster 1985 Colonoscopy through age 75 2010 Lipids for age 45-75 2010 Mammogram for age 45-75 2010 Zoster (shingles) series for age 50+ (1 of 2) 11/10/2015 BMI (ht and wt on same day) for age 18+ 02/22/2019 02/22/2018 Pap test for age 21-65 11/25/2021 9, 11/25/2018, 06/01/2013, Additional history exists COVID-19 vaccine series (2022- season) 2022 06/14/2020, 05/17/2020 Influenza for age 50-64 12/13/2023 Pneumococcal series for age 6-64 Aged Out No longer eligible based on patient's age to complete this topic Procedures Procedure Name Priority Date/Time Associated Diagnosis Comments ESTIMATOR PAPERBOARD BOXES THIN PREP PAP SCREEN IMAGED Routine 11/25/2018 8:30 AM CDT from Last 3 Months or Most Recently Relevant to Health Maintenance Results * ESTIMATOR PAPERBOARD BOXES THIN PREP PAP SCREEN IMAGED (11/25/2018 8:30 AM CDT) Case Report Gynecologic Cytology Report ? Case: [id number] ? Authorizing Provider: ??Evangelista Bishop PA-C ? Collected: ? 11/25/2018 0830 ? Ordering Location: ? [facility] ?Received: ?11/26/2018 1216 ? First Screen: ?Juma Orta ? Specimen: ?ESTIMATOR PAPERBOARD BOXES ThinPrep Vial Screening, Cervical/Vaginal ? 12/05/2018 9:29 AM CDT [facility] INTERPRETATION/ RESULT NEGATIVE FOR INTRAEPITHELIAL LESION OR MALIGNANCY (NIL) (none) 12/05/2018 9:[address] [facility] IMEN ADEQUACY Satisfactory for evaluation Endocervical cells cannot be evaluated due to severe atrophy 12/05/2018 9:[address] [facility] HPV REQUEST HPV and PAP 12/05/2018 9:29 AM [facility] Date of LMP 11/25/2018 12/05/2018 9:29 AM CDT [facility] Last Pap Date 12/05/2018 9:29 AM T [facility] Comment:05/2013 Last Pap Result NIL 9 9:29 AM [facility] Automated Review Successful 12/05/2018 9:29 AM [facility] Comment:Specimen processed s uccessfully by automated test conductor device, ThinPrep Imaging System, [employer] ANCILLARY TESTING ESTIMATOR PAPERBOARD BOXES HPV Ordered, Please see separate report 12/05/2018 9:29 AM [facility] Note The pap test is a screening technique, not a diagnostic procedure. ??It is used primarily to screen for squamous cancers and precursor lesions. ??Published studies have shown that it is subject to both false negative and false positive results. ??The pap test should not be used as the sole means to diagnose or exclude pre-malignant and malignant lesions. Cytology is screened and interpreted at [facility] - [address], [place] [address] and [facility] - [address]; [place] [address] and [facility] - [address]; [place] [address] and [facility] [address]; [place] [address] 12/05/2018 9:29 AM CDT [facility] [employer] LABORAT[facility]-C ENTRAL LABORATORY Other (Cervical/Vagina l) 11/25/2018 8:30 AM CDT 11/26/2018 12:16 PM CDT Evangelista Bishop PA-C PATHOLOGY/CYTOLOGY [facility] [address] [place] [address], from Last 3 Months or Most Recently Relevant to Health Maintenance Care Teams Wire Weaver Cloth Relationship Specialty Start Date End Date Pcp, No . PCP - General 02/22/18
--- NOTE | 2023-09-24 13:00 | CRLHL7_ITS ---
For Patients: As a result of the Century Cures Act, medical imaging exams and procedure reports are released immediately into your electronic medical record. You may view this report before your referring provider. If you have questions, please contact your health care provider. DXA BONE MINERAL DENSITY STUDY Reason for exam: Monitoring, on aromatase inhibitor. Current height (in): 64. Weight (lb): 169. Menopause age: 54. Ethnicity: White. 1. Have you had a previous hip or vertebral fracture? No. 2. Have you had any fractures during your adult life which did not result from significant trauma (e.g., auto accident)? No. 3. Did either of your parents have a hip fracture? No. 4. Do you smoke? No. 5. Have you ever taken Glucocorticoids? No. 6. Do you have rheumatoid arthritis? No. 7. Do you have secondary osteoporosis? No. 8. Do you drink 3 or more alcoholic drinks per day? No. 9. Are you being treated for osteoporosis? No. 10. Have you ever taken any of the following medications: Actonel, Evista, Fosamax, Miacalcin, Reclast, Boniva, Forteo, HRT (i.e. estrogen/hormone therapy), Protelos, Prolia, Vitamin D, Calcium, other ??? please specify. ANSWER: Yes, vitamin D, calcium. 11. Do you have any of the following medical conditions: Anorexia or bulimia, asthma or emphysema, end stage renal disease, hyperparathyroidism, any seizure disorders, cancer, inflammatory bowel diseases, hysterectomy, other ??? please specify. ANSWER: Yes, breast cancer. 12. What was your maximum height (inches)? 64. 13. Do you perform weight bearing exercise regularly? Yes. 14. Do you regularly consume dairy products? No. 15. Do you drink caffeinated beverages? Yes. 16. At what age did your period start? 13. 17. Are you premenopausal? No. 18. How many full term pregnancies have you had? 2. 19. Have you ever missed your period for more than 6 months in a row (not including or menopause)? No. TECHNIQUE: Bone mineral density study was performed using the [employer]. FINDINGS: The results of the study expressed as bone mineral density (BMD) are as follows: Lumbar spine L1 to L3: BMD: 1.137 g/cm2. T-score: 1.1. Z-score: 2.3. Neck Left: BMD: 0.866 g/cm2. T-score: 0.2. Z-score: 1.3. Right: BMD: 0.932 g/cm2. T-score: 0.8. Z-score: 1.9. Total Left: BMD: 1.080 g/cm2. T-score: 1.1. Z-score: 2.0. Right: BMD: 1.156 g/cm2. T-score: 1.8. Z-score: 2.6. IMPRESSION: Normal bone density. *Comparison exams done prior to 09/2019 were performed on different unit, [employer]. COMPARISON: Compared with scan of 03/09/2021, the bone mineral density has decreased by 4 percent at the spine and decreased by 4.2 percent at the hip. ALEKSANDRA COLINDRES M.D. [email or web address] be/Dictated by: Aleksandra Colindres MD @ 09/25/2023 4:02:00 PM (Electronically Signed)
== END 2023-09-24 12:44 | disposition home or self-care (01) ==
LOC: RAD 12:43
PROVIDERS: PCP Physician Assistant Medical; Visit Provider Physician Assistant
DX: Z79.811 Long term (current) use of aromatase inhibitors (principal); C50.912 Malignant neoplasm of unspecified site of left female breast; R59.1 Generalized enlarged lymph nodes
CPT/HCPCS: 77080

== ENCOUNTER 2024-01-25 07:40 | Outpatient (CLI) | payer BC, SELFPAY ==
--- OUTSIDE RECORDS SUMMARY | 2024-01-25 15:14 | XMS_ITS | Clinical Summary ---
Author Organization [facility] Address [place], [place] [address] Care Team Providers Care Underwear Welter Name Role Phone Pcp, No Primary Care [...] Comments Blood Pressure 160/96 02/22/2018 3:09 PM [employer] Pulse 94 02/22/2018 3:09 PM [employer] Temperature - - Respiratory Rate - - Oxygen Saturation - - Inhaled Oxygen Concentration - - Weight 81.2 kg (179 lb) 02/22/2018 3:09 PM [employer] Height 162.6 cm (5' 4) 02/22/2018 3:09 PM [employer] Body Mass Index 30.73 02/22/2018 3:09 PM [employer] Plan of Treatment Health Maintenance Due Date [...] 06/01/2013, Additional history exists COVID-19 vaccine series ( season) 2023 06/14/2020, 05/17/2020 Influenza for age 50-64 12/13/2023 Pneumococcal series for age 6-64 Aged Out No longer eligible based on patient's age to complete this topic Procedures Procedure Name Priority Date/Time Associated Diagnosis Comments DEPUTY FIRE CHIEF THIN PREP PAP SCREEN IMAGED Routine 11/25/2018 8:30 AM CDT from Last 3 Months or Most Recently Relevant to Health Maintenance Results * DEPUTY FIRE CHIEF THIN PREP PAP SCREEN IMAGED (11/25/2018 8:30 AM CDT) Case Report Gynecologic Cytology Report ? Case: [id number] ? Authorizing Provider: ??Evangelista Bishop PA-C ? Collected: ? 11/25/2018 0830 ? Ordering Location: ? [facility] ?Received: ?11/26/2018 1216 ? First Screen: ?Juma Orta ? Specimen: ?DEPUTY FIRE CHIEF ThinPrep Vial Screening, Cervical/Vaginal ? 12/05/2018 9:29 AM CDT [facility] INTERPRETATION/ RESULT NEGATIVE FOR INTRAEPITHELIAL LESION OR MALIGNANCY (NIL) (none) 12/05/2018 9:29 AM T [facility] IMEN ADEQUACY Satisfactory for evaluation Endocervical cells cannot be evaluated due to severe atrophy 12/05/2018 9:29 AM CDT [facility] HPV REQUEST HPV and PAP 12/05/2018 9:29 AM [facility] Date of LMP 11/25/2018 12/05/2018 9:29 AM CDT [facility] Last Pap Date 12/05/2018 9:29 AM T [facility] Comment:05/2013 Last Pap Result NIL 9 9:29 AM [facility] Automated Review Successful 12/05/2018 9:29 AM [facility] Comment:Specimen processed s uccessfully by automated supervisor photostat device, ThinPrep Imaging System, [employer] ANCILLARY TESTING DEPUTY FIRE CHIEF HPV Ordered, Please see separate report 12/05/2018 9:29 AM [facility] Note The pap test is [...] lesions. Cytology is screened and interpreted at [facility] - [address], [place] [address] and [facility] - [address]; [place] [address] and [facility] - [address]; [place] [address] and [facility] [address]; [place] [address] 12/05/2018 9:29 AM CDT [facility] ENTRAL LABORATORY Other (Cervical/Vagina l) 11/25/2018 8:30 AM CDT 11/26/2018 12:16 PM CDT Evangelista Bishop PA-C PATHOLOGY/CYTOLOGY [facility] [address] [place] [address], from Last 3 Months or Most Recently Relevant to Health Maintenance Care Teams Underwear Welter Relationship Specialty Start Date End Date Pcp, No . PCP - General 02/22/18
--- OUTSIDE RECORDS SUMMARY | 2024-01-25 15:15 | XMS_ITS ---
Author Organization [facility] Address [address] [place] [address] Care Team Providers Care [employer] Travel Counselor Name Role Phone Unavailable Unavailable Unavailable Surgery Details Not on file Complications Check Surgery Details section. Procedure Estimated Blood Loss Check Surgery Details section. Procedure Findings Check Surgery Details section. Procedure Specimens Taken Check Surgery Details section.
--- OUTSIDE RECORDS SUMMARY | 2024-01-25 15:15 | XMS_ITS | Referral Summary ---
Author Organization [facility] Address [address] [place] [address] Care Team Providers Care Instructional Technologist Name Role Phone Elsewhere, Pcp Primary Care Provider Unavailabl e Source Comments Patient records contain information from all sites at [facility]. For routine questions regarding patient records, call [phone] during business hours, M-F 8:00 AM - 5:00 PM Central Time. Record requests for emergency care only can be directed to [phone] at any time.[facility] Allergies Active Allergy Reactions Criticality Noted Date Comments Pollen Extracts Other (see comments) Low 08/14/2021 Runny nose, itchy eyes Sulfa (Sulfonamide Antibiotics) Rash Low 02/22/2018 Medications * This document contains information received from the source organization and may not represent a complete record from that organization. atorvastatin (LIPITOR) 10 mg tablet Take 10 mg by mouth at bedtime. 2 Active cetirizine (ZyrTEC) 10 mg tablet Take 10 mg by mouth daily. Active hydroCHLOROthiazid e (HYDRODIURIL) 12.5 mg tablet Take 12.5 mg by mouth daily. 2 Active losartan (COZAAR) 50 mg tablet Take 50 mg by mouth daily. 2 Active yvmrubrtmpjd-Ug-ys on-minerals tablet Take 1 tablet by mouth daily. Active fluticasone propionate (FLONASE) 50 mcg/actuation nasal spray Administer 1 spray into each nostril as needed for rhinitis or allergies. Active anastrozole (ARIMIDEX) 1 mg tablet Take 1 tablet (1 mg total) by mouth daily. Hold for 2 weeks after surgery 0 3 Active calcium carbonate 1,500 mg (600 mg calcium) tablet Take 600 mg of calcium by mouth daily with breakfast. Active aspirin [address] tablet Take 1 tablet (81 mg total) by mouth daily. Hold for 48 hours after surgery 3 Active ondansetron ODT (ZOFRAN-ODT) 4 mg disintegrating tablet Dissolve 1 tablet (4 mg total) in the mouth every 8 (eight) hours as needed for nausea or vomiting. 20 tablet 03/20/2023 2:50 PM ARTIST [employer]NE[employer]ORING 3 Active Active Problems Problem Noted Date Diagnosed Date Hypertension Essential Primary 03/20/2023 Sinusitis 03/20/2023 Absence Of Breast Acquired Bilateral 02/18/2023 Radionecrosis Initial 09/09/2022 Other Specified Disorders Of The Skin And Subcutaneous Tissue Related To Radiation 09/09/2022 Absence Of Breast Acquired Left 05/02/2022 Overview (05/02/2022): Added automatically from request for surgery [id number] Hyperlipidemia 05/02/2022 Hypertension Essential Primary 05/02/2022 Malignant Neoplasm Of Breast Central Female Left 07/16/2021 Cancer Staging:Pathologic stage from 03/19/2021:Stage IA(pT1c, pN0, cM0, G2, ER+, [place]-, HER2-, Oncotype DX score: 27) - Signed [...] week 06/17/2022 How often do you attend hinduism or baptism serv ices? Patient declined 06/17/2022 Do you belong to any clubs o r organizations such as hinduism groups, unions, fraternal or athletic groups, or [...] and heating? Not hard at all 09/04/2022 [facility]ational Stress Questionnaire Answer Date [...] degree you have received? 12th grade 08/11/2021 Comments No Sex and Gender Information Value Date Recorded Sex Assigned at Female 08/11/2021 11:57 AM CDT Legal Sex Female 8:07 AM CDT Gender Identity Female 08/11/2021 11:57 AM CDT Sexual Orientation Straight 08/11/2021 11 :57 AM CDT Last Filed Vital Signs Vital Sign Reading Time Taken Comments Blood Pressure 137/81 03/20/2023 3:49 PM [employer] Pulse 87 03/20/2023 3:49 PM [employer] Temperature 37.3 ??C (99.1 ??F) 03/20/2023 3:49 PM CS T Respiratory Rate 16 03/20/2023 3:49 PM [employer] Oxygen Saturation 95% 03/20/2023 3:49 PM [employer]IST [employer] Inhaled Oxygen Concentration - - Weight 75.9 kg (167 lb 5.3 oz) 03/20/2023 6:24 A M [employer] Height 163 cm (5' 4.17) 03/20/2023 6:24 AM [employer] Body Mass Index 28.57 03/20/2023 6:24 AM [employer]IST [employer] Plan of Treatment Not on file Medical Devices Implanted Type Area Sales Office Assistant Device Identifier Shelf Expiration Date Model / Serial / Lot Clp [place] Ti Spr Mcr 1.5 - [id number] Implanted:Qty : 1 on 07/23/2022 by Jackie Lees M.D. at [facility] Hardware e.g. pins/screws /rods [employer] [id number] / / Clp [place] Ti Spr Mcr 1.5 - [id number] Implanted:Qty : 1 on 07/23/2022 by Jackie Lees M.D. at [facility] Hardware e.g. pins/screws /rods [employer] [id number] / / Clp [place] Ti Spr Mcr 1.5 - [id number] Implanted:Qty : 1 on 07/23/2022 by Jackie Lees M.D. at [facility] Hardware e.g. pins/screws /rods [employer] [id number] / / Clp [place] Ti Spr Mcr 1.5 - [id number] Implanted:Qty : 1 on 07/23/2022 by Jackie Lees M.D. at [facility] Hardware e.g. pins/screws /rods [employer] [id number] / / Clp [place] Ti Spr Mcr 1.5 - [id number] Implanted:Qty : 1 on 07/23/2022 by Jackie Lees M.D. at [facility] Hardware e.g. pins/screws /rods [employer] [id number] / / Clp [place] Ti Spr Mcr 1.5 - [id number] Implanted:Qty : 1 on 07/23/2022 by Jackie Lees M.D. at [facility] Hardware e.g. pins/screws /rods [employer] [id number] / / Clp [place] Ti Spr Mcr 1.5 - [id number] Implanted:Qty : 1 on 07/23/2022 by Jackie Lees M.D. at [facility] Hardware e.g. pins/screws /rods [employer] [id number] / / Clp [place] Ti Spr Mcr 1.5 - [id number] Implanted:Qty : 1 on 07/23/2022 by Jackie Lees M.D. at [facility] Hardware e.g. pins/screws /rods [employer] [id number] / / Clp Hrzn Ti 24 Clp Md Ck - [id number] Implanted:Qty : 1 on 07/23/2022 by Jackie Lees M.D. at [facility] Hardware e.g. pins/screws /rods [employer] [id number] / / Clp Hrzn Ti 24 Clp Sm Red - [id number] Implanted:Qty : 1 on 07/23/2022 by Jackie Lees M.D. at [facility] Hardware e.g. pins/screws /rods [employer] [id number] / / Clp [place] Ti Mcr - [id number] Implanted:Qty : 1 on 07/23/2022 by Jackie Lees M.D. at [facility] Hardware e.g. pins/screws /rods [employer] [id number] / / Clp Hrzn Ti 24 Clp Sm Red - [id number] Implanted:Qty : 1 on 07/23/2022 by Jackie Lees M.D. at [facility] Hardware e.g. pins/screws /rods [employer] [id number] / / Clp Hrzn Ti 24 Clp Sm Red - [id number] Implanted:Qty : 1 on 07/23/2022 by Jackie Lees M.D. at [facility] Hardware e.g. pins/screws /rods [employer] [id number] / / Clp Hrzn Ti 24 Clp Sm Red - [id number] Implanted:Qty : 1 on 07/23/2022 by Jackie Lees M.D. at [facility] Hardware e.g. pins/screws /rods [employer] [id number] / / Clp [place] Ti Mcr - [id number] Implanted:Qty : 1 on 07/23/2022 by aJckie Lees M.D. at [facility] Hardware e.g. pins/screws /rods [employer] [id number] 10/10/2026 [id number] / / [id number] Clp [place] Ti Mcr - [id number] Implanted:Qty : 1 on 07/23/2022 by Jackie Lees M.D. at [facility] Hardware e.g. pins/screws /rods [employer] [id number] 10/10/2026 [id number] / / [id number] Clp [place] Ti Mcr - [id number] Implanted:Qty : 1 on 07/23/2022 by Jackie Lees M.D. at [facility] Hardware e.g. pins/screws /rods [employer] [id number] 10/10/2026 [id number] / / [id number] Clp [place] Ti Mcr - [id number] Implanted:Qty : 1 on 07/23/2022 by Jackie Lees M.D. at [facility] Hardware e.g. pins/screws /rods [employer] [id number] 10/10/2026 [id number] / / [id number] Clp [place] Ti Spr Mcr 1.5 - [id number] Implanted:Qty : 1 on 07/23/2022 by Jackie Lees M.D. at [facility] Hardware e.g. pins/screws /rods [employer] [id number] 10/10/2026 [id number] / / [id number] Clp [place] Ti Spr Mcr 1.5 - [id number] Implanted:Qty : 1 on 07/23/2022 by Jackie Lees M.D. at [facility] Hardware e.g. pins/screws /rods [employer] [id number] 10/10/2026 [id number] / / [id number] Production Line Worker Flow 3.0 - [id number] Implanted:Qty : 1 on 07/23/2022 by Jackie Lees M.D. at [facility] Hardware e.g. pins/screws /rods Left: Breast [employer] [id number] 05/28/2027 [id number] / / [id number] Clp [place] Ti Mcr - [id number] Implanted:Qty : 1 on 07/23/2022 by Jackie Lees M.D. at [facility] Hardware e.g. pins/screws /rods [employer] [id number] / / Production Line Worker Flow 3.0 - [id number] Implanted:Qty : 1 on 07/23/2022 by Jackie Lees M.D. at [facility] Hardware e.g. pins/screws /rods Right: Breast [employer] [id number] 05/28/2027 [id number] / / [id number] Production Line Worker Flow 3.0 - [id number] Implanted:Qty : 1 on 07/23/2022 by Jackie Lees M.D. at [facility] Hardware e.g. pins/screws /rods Right: Breast [employer] [id number] 05/09/2027 [id number] / / [id number] Clp [place] Ti Mcr - [id number] Implanted:Qty : 1 on 07/23/2022 by Jackie Lees M.D. at [facility] Hardware e.g. pins/screws /rods [employer] [id number] / / Clp [place] Ti Mcr - [id number] Implanted:Qty : 1 on 07/23/2022 by Jackie Lees M.D. at [facility] Hardware e.g. pins/screws /rods [employer] [id number] / / Clp [place] Ti Mcr - [id number] Implanted:Qty : 1 on 07/23/2022 by Jackie Lees M.D. at [facility] Hardware e.g. pins/screws /rods [employer] [id number] / / Clp [place] Ti Mcr - [id number] Implanted:Qty : 1 on 07/23/2022 by Jackie Lees M.D. at [facility] Hardware e.g. pins/screws /rods [employer] [id number] / / Clp [place] Ti Mcr - [id number] Implanted:Qty : 1 on 07/23/2022 by Jackie Lees M.D. at [facility] Hardware e.g. pins/screws /rods [employer] [id number] / / Clp [place] Ti Mcr - [id number] Implanted:Qty : 1 on 07/23/2022 by Jackie Lees M.D. at [facility] Hardware e.g. pins/screws /rods [employer] [id number] / / Explanted Type Area Sales Office Assistant Device Identifier Shelf Expiration Date Model / Serial / Lot Jaida 133s Tissue Field Service Analyst, Smooth Full Height, 600cc Implanted:Qty : 1 on 10/28/2021 by Jackie Lees M.D. at [facility]/[employer] Explanted:Qty : 1 on 07/23/2022 by Jackie Lees M.D. at [facility] Breast Implant Left: Breast [employer] 04/14/2026 [id number] / [id number] / Procedures Procedure Name Priority Date/Time Associated Diagnosis Comments ELECTROLYTE (CHEM 4) PANEL, S/P Routine 07/24/2022 3:36 AM CDT BI BREAST SCREENING RIGHT WITH TOMOSYNTHESIS RAD - Routine (most inpatients and all outpatients) 06/24/2022 11:29 AM CDT Malignant Neoplasm Of Breast Central Female Left (HCC) BASIC METABOLIC PANEL, S/P Routine 06/24/2022 8:03 AM CDT Absence Of Breast Acquired Left from Last 3 Months or Most Recently Relevant to Health Maintenance Results * Electrolyte (Chem 4) Panel (07/24/2022 3:36 [...] CDT Wei Chua M.D. LAB BLOOD ADD-ON Final Resul t [facility] [address] [place] [address], [facility] [address] [place] [address] * BI Breast Screening Right with Tomosynthesis [...] 2: Benign. Jackie Lees M.D. IMG BI PROCEDURES Final Result * (ABNORMAL) Basic Metabolic Panel (06/24/2022 8:03 [...] CDT Jackie Lees M.D. LAB BLOOD ADD-ON Final R esult [facility] [address] [place] [address], [facility] [address] [place] [address] from Last 3 Months or Most Recently Relevant to Health Maintenance Insurance [facility] Care Teams Instructional Technologist Relationship Specialty Start Date End Date Elsewhere, Pcp PCP - General Internal Medicine 10/28/21
--- OUTSIDE RECORDS SUMMARY | 2024-01-25 15:15 | XMS_ITS | Clinical Summary ---
Author Organization [facility] Address [address] [place] [address] Care Team Providers Care Rubber Moulding Machine Operator Name Role Phone Elsewhere, Pcp Primary Care Provider Unavailabl e Source Comments Patient records contain information from all sites at [facility]. For routine questions regarding patient records, call [phone] during business hours, M-F 8:00 AM - 5:00 PM Central Time. Record requests for emergency care only can be directed to [phone] at any time.[facility] Allergies Active Allergy Reactions Criticality Noted Date [...] 50 mg by mouth daily. 2 Active kwiidepsfiny-Bt-zj on-minerals tablet Take 1 tablet by mouth [...] or vomiting. 20 tablet 03/20/2023 2:50 PM SULFONATION EQUIPMENT OPERATOR 3 Active Active Problems Problem Noted Date Diagnosed Date Hypertension Essential Primary 03/20/2023 Sinusitis 03/20/2023 Absence Of Breast Acquired Bilateral 02/18/2023 Radionecrosis Initial 09/09/2022 Other Specified Disorders Of The Skin And Subcutaneous Tissue Related To Radiation 09/09/2022 Absence Of Breast Acquired Left 05/02/2022 Overview (05/02/2022): Added automatically from request for surgery [id number] Hyperlipidemia 05/02/2022 Hypertension Essential Primary 05/02/2022 Malignant Neoplasm Of Breast Central Female Left 07/16/2021 Cancer Staging:Pathologic stage from 03/19/2021:Stage IA(pT1c, pN0, cM0, G2, ER+, AL-, HER2-, Oncotype DX score: 27) - Signed [...] week 06/17/2022 How often do you attend jehovah's witness or bahai serv ices? Patient declined 06/17/2022 Do you belong to any clubs o r organizations such as jehovah's witness groups, unions, fraternal or athletic groups, or [...] and heating? Not hard at all 09/04/2022 [facility] - Occupational Stress [...] your living situation today? I have a [facility] place to live 09/04/2022 Education Answer [...] Comments Blood Pressure 137/81 03/20/2023 3:49 PM SULFONATION EQUIPMENT OPERATOR Pulse 87 03/20/2023 3:49 PM SULFONATION EQUIPMENT OPERATOR Temperature 37.3 ??C (99.1 ??F) 03/20/2023 3:49 PM CS T Respiratory Rate 16 03/20/2023 3:49 PM SULFONATION EQUIPMENT OPERATOR Oxygen Saturation 95% 03/20/2023 3:49 PM SULFONATION EQUIPMENT OPERATOR Inhaled Oxygen Concentration - - Weight 75.9 kg (167 lb 5.3 oz) 03/20/2023 6:24 A M SULFONATION EQUIPMENT OPERATOR Height 163 cm (5' 4.17) 03/20/2023 6:24 AM SULFONATION EQUIPMENT OPERATOR Body Mass Index 28.57 03/20/2023 6:24 AM SULFONATION EQUIPMENT OPERATOR Plan of Treatment Health Maintenance Due Date [...] 07/24/2022, 06/24/2022 Sodium Level 07/25/2023 07/24/2022, 06/24/2022 COVID-19 Vaccine ( season) 2023 02/15/2023, 02/10/2022, 08/30/2021, Additional history exists Influenza Vaccine (#1) 2024 , 01/09/2021, 12/30/2019, Additional history exists Fasting Glucose for Diabetes Screening 06/24/2025 06/24/2022 DTaP,Tdap,and Td Vaccines (3 - Td or Tdap) 11/25/2028 11/25/2018, 09/25/2008 Zoster Vaccines Completed 02/01/2021, 11/17/2020 Mammogram Discontinued 06/24/2022, 01/12, 03/19/2021, Additional history exists Pneumococcal vaccine (0-64 years) Aged Out No longer eligible based on patient's age to complete this topic Medical Devices Implanted Type Area Insurance Claims Adjuster Device Identifier Shelf Expiration Date Model / Serial / Lot Clp [place]ayan[place] Ti Spr Mcr 1.5 - [id number] Implanted:Qty : 1 on 07/23/2022 by Jackie Lees M.D. at [facility] Hardware e.g. pins/screws /rods [employer]is [id number] / / Clp [place] Ti Spr Mcr 1.5 - [id number] Implanted:Qty : 1 on 07/23/2022 by Jackie Lees M.D. at [facility] Hardware e.g. pins/screws /rods [employer] [id number] / / Clp [place] Ti Spr Mcr 1.5 - [id number] Implanted:Qty : 1 on 07/23/2022 by Jackie Lees M.D. at [facility] Hardware e.g. pins/screws /rods [employer] [id number] / / Clp [place] Ti Spr Mcr 1.5 - [id number] Implanted:Qty : 1 on 07/23/2022 by Jackie Lees M.D. at [facility] Hardware e.g. pins/screws /rods [employer] [id number] / / Clp [place] Ti Spr Mcr 1.5 - [id number] Implanted:Qty : 1 on 07/23/2022 by Jackie Lees M.D. at [facility] Hardware e.g. pins/screws /rods [employer] [id number] / / Clp [place] Ti Spr Mcr 1.5 - [id number] Implanted:Qty : 1 on 07/23/2022 by Jackie Lees M.D. at [facility] Hardware e.g. pins/screws /rods [employer] [id number] / / Clp [place] Ti Spr Mcr 1.5 - [id number] Implanted:Qty : 1 on 07/23/2022 by Jackie Lees M.D. at [facility] Hardware e.g. pins/screws /rods [employer] [id number] / / Clp [place] Ti Spr Mcr 1.5 - [id number] Implanted:Qty : 1 on 07/23/2022 by Jackie Lees M.D. at [facility] Hardware e.g. pins/screws /rods [employer] [id number] / / Clp Hrzn Ti 24 Clp Md Ck - [id number] Implanted:Qty : 1 on 07/23/2022 by Jackie Lees M.D. at [facility] Hardware e.g. pins/screws /rods [employer] [id number] / / Clp Hrzn Ti 24 Clp Sm Red - [id number] Implanted:Qty : 1 on 07/23/2022 by Jackie Lees M.D. at [facility] Hardware e.g. pins/screws /rods [employer] [id number] / / Clp [place] Ti Mcr - [id number] Implanted:Qty : 1 on 07/23/2022 by Jackie Lees M.D. at [facility] Hardware e.g. pins/screws /rods [employer] [id number] / / Clp Hrzn Ti 24 Clp Sm Red - [id number] Implanted:Qty : 1 on 07/23/2022 by Jackie Lees M.D. at [facility] Hardware e.g. pins/screws /rods [employer] [id number] / / Clp Hrzn Ti 24 Clp Sm Red - [id number] Implanted:Qty : 1 on 07/23/2022 by Jackie Lees M.D. at [facility] Hardware e.g. pins/screws /rods [employer] [id number] / / Clp Hrzn Ti 24 Clp Sm Red - [id number] Implanted:Qty : 1 on 07/23/2022 by Jackie Lees M.D. at [facility] Hardware e.g. pins/screws /rods [employer] [id number] / / Clp [place] Ti Mcr - [id number] Implanted:Qty : 1 on 07/23/2022 by Jackie Lees M.D. at [facility] Hardware e.g. pins/screws /rods [employer] [id number] 10/10/2026 [id number] / / [id number] Clp Guayan[place] Ti Mcr - [id number] Implanted:Qty : 1 on 07/23/2022 by Jackie Lees M.D. at [facility] Hardware e.g. pins/screws /rods [employer] [id number] 10/10/2026 [id number] / / [id number] Clp Guayan[place] Ti Mcr - [id number] Implanted:Qty : 1 on 07/23/2022 by Jackie Lees M.D. at [facility] Hardware e.g. pins/screws /rods [employer] [id number] 10/10/2026 [id number] / / [id number] Clp Guayan[place] Ti Mcr - [id number] Implanted:Qty : 1 on 07/23/2022 by Jackie Lees M.D. at [facility] Hardware e.g. pins/screws /rods [employer] [id number] 10/10/2026 [id number] / / [id number] Clp Guayan[place] Ti Spr Mcr 1.5 - [id number] Implanted:Qty : 1 on 07/23/2022 by Jackie Lees M.D. at [facility] Hardware e.g. pins/screws /rods [employer] [id number] 10/10/2026 [id number] / / [id number] Clp Guayan[place] Ti Spr Mcr 1.5 - [id number] Implanted:Qty : 1 on 07/23/2022 by Jackie Lees M.D. at [facility] Hardware e.g. pins/screws /rods [employer] [id number] 10/10/2026 [id number] / / [id number] [employer] Flow 3.0 - [id number] Implanted:Qty : 1 on 07/23/2022 by Jackie Lees M.D. at [facility] Hardware e.g. pins/screws /rods Left: Breast [employer] [id number] 05/28/2027 WLX5621-D C / / [id number] Clp Guayanilla Ti Mcr - [id number] Implanted:Qty : 1 on 07/23/2022 by Jackie Lees M.D. at [facility] Hardware e.g. pins/screws /rods [employer] [id number] / / [employer] Flow 3.0 - [id number] Implanted:Qty : 1 on 07/23/2022 by Jackie Lees M.D. at [facility] Hardware e.g. pins/screws /rods Right: Breast [employer] [id number] 05/28/2027 ZQY3727-T C / / [id number] [employer] Bo[employer] Flow 3.0 - [id number] Implanted:Qty : 1 on 07/23/2022 by Jackie Lees M.D. at [facility] Hardware e.g. pins/screws /rods Right: Breast [employer] [id number] 05/09/2027 AJY8806-D C / / [id number] Clp Guayanilla Ti Mcr - [id number] Implanted:Qty : 1 on 07/23/2022 by Jackie Lees M.D. at [facility] Hardware e.g. pins/screws /rods [employer] [id number] / / Clp [place] Ti Mcr - [id number] Implanted:Qty : 1 on 07/23/2022 by Jackie Lees M.D. at [facility] Hardware e.g. pins/screws /rods [employer] TAG4557 / / Clp [place] Ti Mcr - [id number] Implanted:Qty : 1 on 07/23/2022 by Jackie Lees M.D. at [facility] Hardware e.g. pins/screws /rods [employer] [id number] / / Clp [place] Ti Mcr - [id number] Implanted:Qty : 1 on 07/23/2022 by Jackie Lees M.D. at [facility] Hardware e.g. pins/screws /rods [employer] [id number] / / Clp [place] Ti Mcr - [id number] Implanted:Qty : 1 on 07/23/2022 by Jackie Lees M.D. at [facility] Hardware e.g. pins/screws /rods [employer] [id number] / / Clp [place]ayan[place] Ti Mcr - [id number] Implanted:Qty : 1 on 07/23/2022 by Jackie Lees M.D. at [facility] Hardware e.g. pins/screws /rods [employer] [id number] / / Explanted Type Area Insurance Claims Adjuster Device Identifier Shelf Expiration Date Model / Serial / Lot Jaida 133s Tissue Brass Roller, Smooth Full Height, 600cc Implanted:Qty : 1 on 10/28/2021 by [facility] Explanted:Qty : 1 on 07/23/2022 by Jackie Lees M.D. at [facility] Breast Implant Left: Breast [employer] 04/14/2026 133S-FV-1 4-T / [id number] / Procedures Procedure Name Priority Date/Time Associated [...] M.D. LAB BLOOD ADD-ON Final Resul t [facility] [address] [place] [address], [facility] [address] [place] [address] * BI Breast Screening Right with Tomosynthesis [...] M.D. LAB BLOOD ADD-ON Final R esult [facility] [address] [place] [address], [place] [facility] [address] [place] [address] from Last 3 Months or Most Recently Relevant to Health Maintenance Insurance [facility] Care Teams Rubber Moulding Machine Operator Relationship Specialty Start Date End Date Elsewhere, Pcp PCP - General Internal Medicine 10/28/21
== END 2024-01-25 07:41 | disposition home or self-care (01) ==
LOC: NFLDREF 15:12
PROVIDERS: PCP Physician Assistant Medical; Referring Provider Physician Assistant Medical; Visit Provider Physician Assistant
DX: C50.912 Malignant neoplasm of unspecified site of left female breast (principal)
CPT/HCPCS: 80053; 80061; 82306; 84443

== ENCOUNTER 2024-01-28 15:30 | Outpatient (RCR) | payer BC, SELFPAY ==
--- NOTE | 2023-10-07 11:57 | ONC.NURNOTE ---
Addendum entered by Mercedes Ruelas 10/08/23 14:50: Reviewed with Charlotte Harper. Orders entered for BMP and Vit D. Patient will report to clinic tomorrow for labs. Original Note: Patient called to request orders for Vit D lab draw. She states this was discussed at her last visit but she originally thought that she didn't need it. After giving it some thought, she feels that many of her symptoms are similar to Vit D deficiency and she would like her level checked. I assured her that I would review with SALLY Raza and give her a call back tomorrow.
[2023-10-09 13:55] LABS: Chloride* 106 mmol/L (96-114); Potassium* 4.6 mmol/L (3.6-5.1); Sodium* 144 mmol/L (135-149)
[2023-10-09 13:57] LABS: Creatinine* 0.8 mg/dL (0.5-1.5); Estimated Glomerular Filt Rate 86 ml/min
[2023-10-09 13:58] LABS: Anion Gap 8 mEq/L (7-15); Blood Urea Nitrogen* 16 mg/dL (7-30); Calcium* 10.6 mg/dL (8.4-10.6); Carbon Dioxide* 30 mmol/L (20-32); Glucose* 91 mg/dL (60-115)
[2023-10-09 14:15] LABS: Vitamin D 25 Hydroxy* 53 ng/mL (30-80)
--- NOTE | 2024-03-17 16:44 | ONC.NURNOTE ---
Addendum entered by Mercedes Ruelas 03/24/24 16:30: Patient informed that Charlotte Harper reviewed her concerns and deferred management to the ordering provider. Patient informed that Tamoxifen is associated with endometrial not cervical cancer. With that being said, if she were to develop any vaginal spotting, we would recommend further assessment. Patient verbalizes understanding. Original Note: Patient called to report she had a recent pap smear that was abnormal. She states it had atypical cells and the recommendation was recheck in one year. Patient has a history of Tamoxifen for 5 years and is wondering if it is okay to wait one year. She denies any vaginal bleeding. I assured her that I would review with the oncologist next week and get back to her. Patient verbalizes understanding.
== END 2024-04-02 23:59 | disposition home or self-care (01) ==
LOC: CCIC 15:30
PROVIDERS: PCP Physician Assistant Medical; Referring Provider Physician Assistant Medical; Visit Provider Physician Assistant
DX: C50.912 Malignant neoplasm of unspecified site of left female breast (principal); Z17.0 Estrogen receptor positive status [ER+]; D05.11 Intraductal carcinoma in situ of right breast; Z90.13 Acquired absence of bilateral breasts and nipples; Z79.811 Long term (current) use of aromatase inhibitors
CPT/HCPCS: 80048; 82306; 99214; G0463

== ENCOUNTER 2024-02-22 15:00 | Outpatient (CLI) | payer BC, SELFPAY ==
--- OUTSIDE RECORDS SUMMARY | 2024-02-22 15:40 | XMS_ITS | Clinical Summary ---
Author Organization [facility] Address [address] [place] [address] Care Team Providers Care Laborer Tan House Name Role Phone Elsewhere, Pcp Primary Care Provider Unavailabl e Source Comments Patient records contain information from all sites at [facility]. For routine questions regarding patient records, call [phone] during business hours, M-F 8:00 AM - 5:00 PM Central Time. Record requests for emergency care only can be directed to [phone] at any time.[facility] Allergies Active Allergy Reactions Criticality Noted Date [...] 50 mg by mouth daily. 2 Active tgempinbsqde-Zr-dv on-minerals tablet Take 1 tablet by mouth [...] or vomiting. 20 tablet 03/20/2023 2:50 PM DIRECTOR AMBULATORY 3 Active Active Problems Problem Noted Date Diagnosed Date Hypertension Essential Primary 03/20/2023 Sinusitis 03/20/2023 Absence Of Breast Acquired Bilateral 02/18/2023 Radionecrosis Initial 09/09/2022 Other Specified Disorders Of The Skin And Subcutaneous Tissue Related To Radiation 09/09/2022 Absence Of Breast Acquired Left 05/02/2022 Overview (05/02/2022): Added automatically from request for surgery [id number] Hyperlipidemia 05/02/2022 Hypertension Essential Primary 05/02/2022 Malignant Neoplasm Of Breast Central Female Left 07/16/2021 Cancer Staging:Pathologic stage from 03/19/2021:Stage IA(pT1c, pN0, cM0, G2, ER+, [place]-, HER2-, Oncotype DX score: 27) - Signed [...] week 06/17/2022 How often do you attend yarsani or rastafarian serv ices? Patient declined 06/17/2022 Do you belong to any clubs o r organizations such as yarsani groups, unions, fraternal or athletic groups, or [...] and heating? Not hard at all 09/04/2022 [facility] - Occupational [...] living? No 09/04/2022 Nutrition Answer Date Recorded On average, how many serving s of [...] your living situation today? I have a [facility] place to live 09/04/2022 Education Answer Date [...] Comments Blood Pressure 137/81 03/20/2023 3:49 PM DIRECTOR AMBULATORY Pulse 87 03/20/2023 3:49 PM DIRECTOR AMBULATORY Temperature 37.3 ??C (99.1 ??F) 03/20/2023 3:49 PM CS T Respiratory Rate 16 03/20/2023 3:49 PM DIRECTOR AMBULATORY Oxygen Saturation 95% 03/20/2023 3:49 PM DIRECTOR AMBULATORY Inhaled Oxygen Concentration - - Weight 75.9 kg (167 lb 5.3 oz) 03/20/2023 6:24 A M DIRECTOR AMBULATORY Height 163 cm (5' 4.17) 03/20/2023 6:24 AM DIRECTOR AMBULATORY Body Mass Index 28.57 03/20/2023 6:24 AM DIRECTOR AMBULATORY Plan of Treatment Health Maintenance Due Date Last Done Comments CT Colonography 1965 Cologuard 1965 Colonoscopy 1965 Colorectal Cancer Screening 1965 FIT 1965 HIV Screening 1965 Hepatitis C Screening 1965 Lipid (Cholesterol) Screening 1965 Office Visit for Blood Pressure Check / Re-check 1965 Hepatitis B Vaccines (1 of 3 - 19+ 3-dose series) 1984 Cervical/Vaginal Cancer Screening 11/25/2021 11/25/2018 Depression Screening (Annual [...] Discontinued 06/24/2022, 01/12, 03/19/2021, Additional history exists IPV Vaccines Aged Out No longer eligi ble based on patient's age to complete this topic Pneumococcal vaccine (0-64 years) Aged Out No longer eligible based on patient's age to complete this topic Medical Devices Implanted Type Area Employment Advisor Device Identifier Shelf Expiration Date Model / Serial / Lot Clp Perkins Ti Spr Mcr 1.5 - [id number] Implanted:Qty : 1 on 07/23/2022 by Jackie Lees M.D. at [facility] Hardware e.g. pins/screws /rods [employer] [id number] / / Clp Perkins Ti Spr Mcr 1.5 - [id number] Implanted:Qty : 1 on 07/23/2022 by Jackie Lees M.D. at [facility] Hardware e.g. pins/screws /rods [employer] [id number] / / Clp Perkins Ti Spr Mcr 1.5 - [id number] Implanted:Qty : 1 on 07/23/2022 by Jackie Lees M.D. at [facility] Hardware e.g. pins/screws /rods [employer] [id number] / / Clp Perkins Ti Spr Mcr 1.5 - [id number] Implanted:Qty : 1 on 07/23/2022 by Jackie Lees M.D. at [facility] Hardware e.g. pins/screws /rods [employer] [id number] / / Clp Perkins Ti Spr Mcr 1.5 - [id number] Implanted:Qty : 1 on 07/23/2022 by Jackie Lees M.D. at [facility] Hardware e.g. pins/screws /rods [employer] [id number] / / Clp Perkins Ti Spr Mcr 1.5 - [id number] Implanted:Qty : 1 on 07/23/2022 by Jackie Lees M.D. at [facility] Hardware e.g. pins/screws /rods [employer] [id number] / / Clp Perkins Ti Spr Mcr 1.5 - [id number] Implanted:Qty : 1 on 07/23/2022 by Jackie Lees M.D. at [facility] Hardware e.g. pins/screws /rods [employer] [id number] / / Clp Perkins Ti Spr Mcr 1.5 - [id number] Implanted:Qty : 1 on 07/23/2022 by Jackie Lees M.D. at [facility] Hardware e.g. pins/screws /rods [employer] [id number] / / Clp Hrzn Ti 24 Clp Md Ck - [id number] Implanted:Qty : 1 on 07/23/2022 by Jackie Lees M.D. at [facility] Hardware e.g. pins/screws /rods [employer] [id number] / / Clp Hrzn Ti 24 Clp Sm Red - [id number] Implanted:Qty : 1 on 07/23/2022 by Jackie Lees M.D. at [facility] Hardware e.g. pins/screws /rods [employer] [id number] / / Clp Perkins Ti Mcr - [id number] Implanted:Qty : 1 on 07/23/2022 by Jackie Lees M.D. at [facility] Hardware e.g. pins/screws /rods [employer] LIR2850 / / Clp Hrzn Ti 24 Clp Sm Red - [id number] Implanted:Qty : 1 on 07/23/2022 by Jackie Lees M.D. at [facility] Hardware e.g. pins/screws /rods [employer] [id number] / / Clp Hrzn Ti 24 Clp Sm Red - [id number] Implanted:Qty : 1 on 07/23/2022 by Jackie Lees M.D. at [facility] Hardware e.g. pins/screws /rods [employer] [id number] / / Clp Hrzn Ti 24 Clp Sm Red - [id number] Implanted:Qty : 1 on 07/23/2022 by Jackie Lees M.D. at [facility] Hardware e.g. pins/screws /rods [employer] [id number] / / Clp Perkins Ti Mcr - [id number] Implanted:Qty : 1 on 07/23/2022 by Jackie Lees M.D. at [facility] Hardware e.g. pins/screws /rods [employer] [id number] 10/10/2026 [id number] / / [id number] Clp Perkins Ti Mcr - [id number] Implanted:Qty : 1 on 07/23/2022 by Jackie Lees M.D. at [facility] Hardware e.g. pins/screws /rods [employer] [id number] 10/10/2026 VRU1080 / / [id number] Clp Perkins Ti Mcr - [id number] Implanted:Qty : 1 on 07/23/2022 by Jackie Lees M.D. at [facility] Hardware e.g. pins/screws /rods [employer] [id number] 10/10/2026 IVC2371 / / [id number] Clp Perkins Ti Mcr - [id number] Implanted:Qty : 1 on 07/23/2022 by Jackie Lees M.D. at [facility] Hardware e.g. pins/screws /rods [employer] [id number] 10/10/2026 [id number] / / [id number] Clp Perkins Ti Spr Mcr 1.5 - [id number] Implanted:Qty : 1 on 07/23/2022 by Jackie Lees M.D. at [facility] Hardware e.g. pins/screws /rods [employer] [id number] 10/10/2026 [id number] / / [id number] Clp Perkins Ti Spr Mcr 1.5 - [id number] Implanted:Qty : 1 on 07/23/2022 by Jackie Lees M.D. at [facility] Hardware e.g. pins/screws /rods [employer] [id number] 10/10/2026 QSA5900 / / [id number] Medical Laboratory Technical Officer Flow 3.0 - [id number] Implanted:Qty : 1 on 07/23/2022 by Jackie Lees M.D. at [facility] Hardware e.g. pins/screws /rods Left: Breast [employer] [id number] 05/28/2027 ILJ5006-V C / / [id number] Clp Perkins Ti Mcr - [id number] Implanted:Qty : 1 on 07/23/2022 by Jackie Lees M.D. at [facility] Hardware e.g. pins/screws /rods [employer] [id number] / / Medical Laboratory Technical Officer Flow 3.0 - [id number] Implanted:Qty : 1 on 07/23/2022 by Jackie Lees M.D. at [facility] Hardware e.g. pins/screws /rods Right: Breast [employer] [id number] 05/28/2027 QOM8043-C C / / [id number] Medical Laboratory Technical Officer Flow 3.0 - [id number] Implanted:Qty : 1 on 07/23/2022 by Jackie Lees M.D. at [facility] Hardware e.g. pins/screws /rods Right: Breast [employer] [id number] 05/09/2027 ANM4943-F C / / [id number] Clp Perkins Ti Mcr - [id number] Implanted:Qty : 1 on 07/23/2022 by Jackie Lees M.D. at [facility] Hardware e.g. pins/screws /rods [employer] [id number] / / Clp Perkins Ti Mcr - [id number] Implanted:Qty : 1 on 07/23/2022 by Jackie Lees M.D. at [facility] Hardware e.g. pins/screws /rods [employer] [id number] / / Clp Perkins Ti Mcr - [id number] Implanted:Qty : 1 on 07/23/2022 by Jackie Lees M.D. at [facility] Hardware e.g. pins/screws /rods [employer] [id number] / / Clp Perkins Ti Mcr - [id number] Implanted:Qty : 1 on 07/23/2022 by Jackie Lees M.D. at [facility] Hardware e.g. pins/screws /rods [employer] [id number] / / Clp Perkins Ti Mcr - [id number] Implanted:Qty : 1 on 07/23/2022 by Jackie Lees M.D. at [facility] Hardware e.g. pins/screws /rods [employer] JQR2714 / / Clp Perkins Ti Mcr - [id number] Implanted:Qty : 1 on 07/23/2022 by Jackie Lees M.D. at [facility] Hardware e.g. pins/screws /rods [employer] [id number] / / Explanted Type Area Employment Advisor Device Identifier Shelf Expiration Date Model / Serial / Lot Jaida 133s Tissue Cell Preparer, Smooth Full Height, 600cc Implanted:Qty : 1 on 10/28/2021 by Jackie Lees M.D. at [facility] Explanted:Qty : 1 on 07/23/2022 by Jackie Lees M.D. at [facility] Breast Implant Left: Breast [employer] 04/14/2026 133S-FV-1 4-T / [id number] / Procedures Procedure Name Priority Date/Time Associated [...] M.D. LAB BLOOD ADD-ON Final Resul t [facility] [address] [place] [address], [facility] [address] [place] [address] * BI Breast Screening Right with Tomosynthesis [...] M.D. LAB BLOOD ADD-ON Final R esult [facility] [address] [place] [address], [facility] DTL [facility] [address] [place] [address] from Last 3 Months or Most Recently Relevant to Health Maintenance Insurance [facility] Care Teams Laborer Tan House Relationship Specialty Start Date End Date Elsewhere, Pcp PCP - General Internal Medicine 10/28/21
--- OUTSIDE RECORDS SUMMARY | 2024-02-22 15:40 | XMS_ITS | Referral Summary ---
Author Organization [facility] Address [address] [place] [address] Care Team Providers Care Printing Plate Clerk Name Role Phone Elsewhere, Pcp Primary Care Provider Unavailabl e Source Comments Patient records contain information from all sites at [facility]. For routine questions regarding patient records, call [phone] during business hours, M-F 8:00 AM - 5:00 PM Central Time. Record requests for emergency care only can be directed to [phone] at any time.[facility] Allergies Active Allergy Reactions Criticality Noted [...] 50 mg by mouth daily. 2 Active awkfbgazuiwn-Ca-fw on-minerals tablet Take 1 tablet by mouth [...] or vomiting. 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 Patient declined 06/17/2022 Do you belong to any clubs o r organizations such as hoahaoism groups, unions, fraternal or athletic groups, or [...] and heating? Not hard at all 09/04/2022 [facility]ational Stress Questionnaire Answer [...] Comments Blood Pressure 137/81 03/20/2023 3:49 PM CAR SHAGGER Pulse 87 03/20/2023 3:49 PM CAR SHAGGER Temperature 37.3 ??C (99.1 ??F) 03/20/2023 3:49 PM CS T Respiratory Rate 16 03/20/2023 3:49 PM CAR SHAGGER Oxygen Saturation 95% 03/20/2023 3:49 PM CAR SHAGGER Inhaled Oxygen Concentration - - Weight 75.9 kg (167 lb 5.3 oz) 03/20/2023 6:24 A M CAR SHAGGER Height 163 cm (5' 4.17) 03/20/2023 6:24 AM CAR SHAGGER Body Mass Index 28.57 03/20/2023 6:24 AM CAR SHAGGER Plan of Treatment Not on file Medical Devices Implanted Type Area Psychology Lecturer Device Identifier Shelf Expiration Date Model / Serial / Lot Clp Beaufort Ti Spr Mcr 1.5 - [id number] Implanted:Qty : 1 on 07/23/2022 by Jackie Lees M.D. at [facility] Hardware e.g. pins/screws /rods [employer] [id number] / / Clp Beaufort Ti Spr Mcr 1.5 - [id number] Implanted:Qty : 1 on 07/23/2022 by Jackie Lees M.D. at [facility] Hardware e.g. pins/screws /rods [employer] [id number] / / Clp Beaufort Ti Spr Mcr 1.5 - [id number] Implanted:Qty : 1 on 07/23/2022 by Jackie Lees M.D. at [facility] Hardware e.g. pins/screws /rods [employer] [id number] / / Clp Beaufort Ti Spr Mcr 1.5 - [id number] Implanted:Qty : 1 on 07/23/2022 by Jackie Lees M.D. at [facility] Hardware e.g. pins/screws /rods [employer] [id number] / / Clp Beaufort Ti Spr Mcr 1.5 - [id number] Implanted:Qty : 1 on 07/23/2022 by Jackie Lees M.D. at [facility] Hardware e.g. pins/screws /rods [employer] [id number] / / Clp Beaufort Ti Spr Mcr 1.5 - [id number] Implanted:Qty : 1 on 07/23/2022 by Jackie Lees M.D. at [facility] Hardware e.g. pins/screws /rods [employer] [id number] / / Clp Beaufort Ti Spr Mcr 1.5 - [id number] Implanted:Qty : 1 on 07/23/2022 by Jackie Lees M.D. at [facility] Hardware e.g. pins/screws /rods [employer] [id number] / / Clp Beaufort Ti Spr Mcr 1.5 - [id number] Implanted:Qty : 1 on 07/23/2022 by Jackie Lees M.D. at [facility] Hardware e.g. pins/screws /rods [employer] [id number] / / Clp Hrzn Ti 24 Clp Md Ck - [id number] Implanted:Qty : 1 on 07/23/2022 by Jackie Lees M.D. at [facility] Hardware e.g. pins/screws /rods [employer] [id number] / / Clp Hrzn Ti 24 Clp Sm Red - [id number] Implanted:Qty : 1 on 07/23/2022 by Jackie Lees M.D. at [facility] Hardware e.g. pins/screws /rods [employer] [id number] / / Clp Beaufort Ti Mcr - [id number] Implanted:Qty : 1 on 07/23/2022 by Jackie Lees M.D. at [facility] Hardware e.g. pins/screws /rods [employer] [id number] / / Clp Hrzn Ti 24 Clp Sm Red - [id number] Implanted:Qty : 1 on 07/23/2022 by Jackie Lees M.D. at [facility] Hardware e.g. pins/screws /rods [employer] [id number] / / Clp Hrzn Ti 24 Clp Sm Red - [id number] Implanted:Qty : 1 on 07/23/2022 by Jackie Lees M.D. at [facility] Hardware e.g. pins/screws /rods [employer] [id number] / / Clp Hrzn Ti 24 Clp Sm Red - [id number] Implanted:Qty : 1 on 07/23/2022 by Jackie Lees M.D. at [facility] Hardware e.g. pins/screws /rods [employer] [id number] / / Clp Beaufort Ti Mcr - [id number] Implanted:Qty : 1 on 07/23/2022 by Jackie Lees M.D. at [facility] Hardware e.g. pins/screws /rods [employer] [id number] 10/10/2026 [id number] / / [id number] Clp Beaufort Ti Mcr - [id number] Implanted:Qty : 1 on 07/23/2022 by Jackie Lees M.D. at [facility] Hardware e.g. pins/screws /rods [employer] [id number] 10/10/2026 [id number] / / [id number] Clp Beaufort Ti Mcr - [id number] Implanted:Qty : 1 on 07/23/2022 by Jackie Lees M.D. at [facility] Hardware e.g. pins/screws /rods [employer] [id number] 10/10/2026 [id number] / / [id number] Clp Beaufort Ti Mcr - [id number] Implanted:Qty : 1 on 07/23/2022 by Jackie Lees M.D. at [facility] Hardware e.g. pins/screws /rods [employer] [id number] 10/10/2026 [id number] / / [id number] Clp Beaufort Ti Spr Mcr 1.5 - [id number] Implanted:Qty : 1 on 07/23/2022 by Jackie Lees M.D. at [facility] Hardware e.g. pins/screws /rods [employer] [id number] 10/10/2026 [id number] / / [id number] Clp Beaufort Ti Spr Mcr 1.5 - [id number] Implanted:Qty : 1 on 07/23/2022 by Jackie Lees M.D. at [facility] Hardware e.g. pins/screws /rods [employer] [id number] 10/10/2026 [id number] / / [id number] Mushroom Growing Supervisor Flow 3.0 - [id number] Implanted:Qty : 1 on 07/23/2022 by Jackie Lees M.D. at [facility] Hardware e.g. pins/screws /rods Left: Breast [employer] [id number] 05/28/2027 [id number] / / [id number] Clp Beaufort Ti Mcr - [id number] Implanted:Qty : 1 on 07/23/2022 by Jackie Lees M.D. at [facility] Hardware e.g. pins/screws /rods [employer] [id number] / / Mushroom Growing Supervisor Flow 3.0 - [id number] Implanted:Qty : 1 on 07/23/2022 by Jackie Lees M.D. at [facility] Hardware e.g. pins/screws /rods Right: Breast [employer] [id number] 05/28/2027 [id number] C / / [id number] Mushroom Growing Supervisor Flow 3.0 - [id number] Implanted:Qty : 1 on 07/23/2022 by Jackie Lees M.D. at [facility] Hardware e.g. pins/screws /rods Right: Breast [employer] [id number] 05/09/2027 [id number] C / / [id number] Clp Beaufort Ti Mcr - [id number] Implanted:Qty : 1 on 07/23/2022 by Jackie Lees M.D. at [facility] Hardware e.g. pins/screws /rods [employer] [id number] / / Clp Beaufort Ti Mcr - [id number] Implanted:Qty : 1 on 07/23/2022 by Jackie Lees M.D. at [facility] Hardware e.g. pins/screws /rods [employer] [id number] / / Clp Beaufort Ti Mcr - [id number] Implanted:Qty : 1 on 07/23/2022 by Jackie Lees M.D. at [facility] Hardware e.g. pins/screws /rods [employer] [id number] / / Clp Beaufort Ti Mcr - [id number] Implanted:Qty : 1 on 07/23/2022 by Jackie Lees M.D. at [facility] Hardware e.g. pins/screws /rods [employer] [id number] / / Clp Beaufort Ti Mcr - [id number] Implanted:Qty : 1 on 07/23/2022 by Jackie Lees M.D. at [facility] Hardware e.g. pins/screws /rods [employer] [id number] / / Clp Beaufort Ti [facility] - [id number] Implanted:Qty : 1 on 07/23/2022 by Jackie Lees M.D. at [facility] Hardware e.g. pins/screws /rods [employer] [id number] / / Explanted Type Area Psychology Lecturer Device Identifier Shelf Expiration Date Model / Serial / Lot Jaida 133s Tissue Tactical Response Group Officer, Smooth Full Height, 600cc Implanted:Qty : 1 on 10/28/2021 by Jackie Lees M.D. at [facility]my Explanted:Qty : 1 on 07/23/2022 by Jackie Lees M.D. at [facility] Breast Implant Left: Breast [employer] 04/14/2026 [id number] 4-T / [id number] / Procedures Procedure Name Priority Date/Time Associated [...] M.D. LAB BLOOD ADD-ON Final Resul t [facility] [address] [place] [address], [facility] [address] [place] [address] * BI Breast Screening Right with Tomosynthesis [...] ASSESSMENT: BI-RADS: 2: Benign. Jackie Lees M.D. IM BI PROCEDURES Final Result * (ABNORMAL) Basic [...] M.D. LAB BLOOD ADD-ON Final R esult [facility] [address] [place] [address], [facility] [place] [address] [place] [address] from Last 3 Months or Most Recently Relevant to Health Maintenance Insurance [facility] Care Teams Printing Plate Clerk Relationship Specialty Start Date End Date Elsewhere, Pcp PCP - General Internal Medicine 10/28/21
--- OUTSIDE RECORDS SUMMARY | 2024-02-22 15:40 | XMS_ITS ---
Author Organization [facility] Address [address] [place] [address] Care Team Providers Care Mold Insert Changer Name Role Phone Unavailable Unavailable Unavailable Surgery Details Not on file Complications Check Surgery Details section. Procedure Estimated Blood Loss Check Surgery Details section. Procedure Findings Check Surgery Details section. Procedure Specimens Taken Check Surgery Details section.
--- OUTSIDE RECORDS SUMMARY | 2024-02-22 15:40 | XMS_ITS | Clinical Summary ---
Author Organization [facility] Address [place], [place] [address] Care Team Providers Care Motion Picture Critic Name Role Phone Pcp, No Primary Care [...] Comments Blood Pressure 160/96 02/22/2018 3:09 PM RABBIT FANCIER Pulse 94 02/22/2018 3:09 PM RABBIT FANCIER Temperature - - Respiratory Rate - - Oxygen Saturation - - Inhaled Oxygen Concentration - - Weight 81.2 kg (179 lb) 02/22/2018 3:09 PM RABBIT FANCIER Height 162.6 cm (5' 4) 02/22/2018 3:09 PM RABBIT FANCIER Body Mass Index 30.73 02/22/2018 3:09 PM RABBIT FANCIER Plan of Treatment Health Maintenance Due Date [...] Procedure Name Priority Date/Time Associated Diagnosis Comments MANUFACTURING HELPER THIN PREP PAP SCREEN IMAGED Routine 11/25/2018 8:30 AM CDT from Last 3 Months or Most Recently Relevant to Health Maintenance Results * MANUFACTURING HELPER THIN PREP PAP SCREEN IMAGED (11/25/2018 8:30 AM CDT) Case Report Gynecologic Cytology Report ? Case: [id number] ? Authorizing Provider: ??Evangelista Bishop PA-C ? Collected: ? 11/25/2018 0830 ? Ordering Location: ? [facility] ?Received: ?11/26/2018 1216 ? First Screen: ?Juma Orta ? Specimen: ?MANUFACTURING HELPER ThinPrep Vial Screening, Cervical/Vaginal ? 12/05/2018 9:29 AM CDT [facility] INTERPRETATION/ RESULT NEGATIVE FOR INTRAEPITHELIAL LESION OR MALIGNANCY (NIL) (none) 12/05/2018 9:29 AM T [facility] IMEN ADEQUACY Satisfactory for evaluation Endocervical cells cannot be evaluated due to severe atrophy 12/05/2018 9:29 AM CDT [facility] HPV REQUEST HPV and PAP 12/05/2018 9:29 AM [facility] Date of LMP 11/25/2018 12/05/2018 9:29 AM CDT [facility] Last Pap Date 12/05/2018 9:29 AM T [facility] Comment:05/2013 Last Pap Result NIL 9 9:29 AM [facility] Automated Review Successful 12/05/2018 9:29 AM [facility] Comment:Specimen processed s uccessfully by automated hospitality internship device, ThinPrep Imaging System, [employer] ANCILLARY TESTING MANUFACTURING HELPER HPV Ordered, Please see separate report 12/05/2018 9:29 AM [facility] Note The pap test is [...] lesions. Cytology is screened and interpreted at [facility] Laboratory - [address], [place] [address] and [facility] - [address]; [place] [address] and [facility] - [address]; [place] [address] and [facility] [address]; [place] [address] 12/05/2018 9:29 AM CDT [facility]-C ENTRAL LABORATORY Other (Cervical/Vagina l) 11/25/2018 8:30 AM CDT 11/26/2018 12:16 PM CDT Evangelista Bishop PA-C PATHOLOGY/CYTOLOGY [facility] LAB[facility]ORY [address] [place] [address], from Last 3 Months or Most Recently Relevant to Health Maintenance Care Teams Motion Picture Critic Relationship Specialty Start Date End Date Pcp, No . PCP - General 02/22/18
[2024-02-25 21:10] LABS: HPV Source Cervical/Vag; HPV, High Risk by TMA Not Detected
[2024-03-17 15:13] LABS: Pap Test Reviewed by Path Done
== END 2024-02-22 15:01 | disposition home or self-care (01) ==
PROVIDERS: PCP Physician Assistant Medical; Visit Provider Physician Assistant Medical
DX: Z00.00 Encounter for general adult medical examination without abnormal findings (principal); I10 Essential (primary) hypertension; E78.5 Hyperlipidemia, unspecified; Z12.4 Encounter for screening for malignant neoplasm of cervix
CPT/HCPCS: 87624; 87625; 88141; 88142

== ENCOUNTER 2024-03-30 07:14 | Outpatient (CLI) | payer BC, SELFPAY | END 2024-03-30 07:15 | disposition home or self-care (01) | LOC: NFLDREF 03-31 05:09 | PROVIDERS: PCP Physician Assistant Medical; Referring Provider Physician Assistant Medical; Visit Provider Physician Assistant Medical | DX: N30.01 Acute cystitis with hematuria (principal); B96.20 Unspecified Escherichia coli [E. coli] as the cause of diseases classified elsewhere | CPT/HCPCS: 87086; 87186 ==

== ENCOUNTER 2024-08-11 12:35 | Outpatient (RCR) | payer BC, SELFPAY | END 2025-02-07 23:59 | disposition home or self-care (01) | LOC: CCIC 12:35 | PROVIDERS: PCP Physician Assistant Medical; Referring Provider Physician Assistant Medical; Visit Provider Internal Medicine Hematology & Oncology | DX: C50.912 Malignant neoplasm of unspecified site of left female breast (principal); Z17.0 Estrogen receptor positive status [ER+]; D05.11 Intraductal carcinoma in situ of right breast; Z79.811 Long term (current) use of aromatase inhibitors; Z90.13 Acquired absence of bilateral breasts and nipples | CPT/HCPCS: 99213; 99214; G0463 ==

== ENCOUNTER 2024-10-13 12:10 | Outpatient (CLI) | payer BC, SELFPAY | END 2024-10-13 12:11 | disposition home or self-care (01) | LOC: NFLDREF 10-18 03:54 | PROVIDERS: PCP Physician Assistant Medical; Referring Provider Physician Assistant Medical; Visit Provider Physician Assistant | DX: R30.0 Dysuria (principal) | CPT/HCPCS: 87086 ==

== ENCOUNTER 2025-01-14 23:32 | Emergency (ER) | payer OTHER, BC, SELFPAY ==
--- OUTSIDE RECORDS SUMMARY | 2025-01-14 23:34 | XMS_ITS | CCD ---
Author Name Interface, [id number] lity Address [address] [address] [facility] Address [address] [address] Allergies and Adverse Reactions Reason for Visit Medications Problems Social History
--- OUTSIDE RECORDS SUMMARY | 2025-01-14 23:34 | XMS_ITS ---
Author Name Interface, [id number] lity Address [address] [id number] [facility] Address [address] [address] Allergies and Adverse Reactions Plan Reason for Visit Encounters Immunizations Medications Problems Vital Signs
--- OUTSIDE RECORDS SUMMARY | 2025-01-14 23:34 | XMS_ITS | Clinical Summary ---
Author Organization [facility] Address [address] [place] [address] Care Team Providers Care Bowling Ball Finisher Name Role Phone Elsewhere, Pcp Primary Care Provider Unavailabl e Source Comments Patient records contain information from all sites at [facility]. For routine questions regarding patient records, call [phone] during business hours, M-F 8:00 AM - 5:00 PM Central Time. Record requests for emergency care only can be directed to [phone] at any time.[facility] Allergies Active Allergy Reactions Criticality Noted Date [...] 50 mg by mouth daily. 2 Active omwyarlghlla-Sm-bn on-minerals tablet Take 1 tablet by mouth [...] or vomiting. 20 tablet 03/20/2023 2:50 PM TACTICAL DECEPTION PLANS OFFICER 3 Active IBUPROFEN ORAL Activ e cephalexin (Keflex) 500 mg capsule Take 1 capsule by mouth 2 (two) times a day. 4 Active Active Problems Problem Noted Date Diagnosed Date Hypertension Essential Primary 03/20/2023 Sinusitis 03/20/2023 Absence Of Breast Acquired Bilateral 02/18/2023 Radionecrosis Initial 09/09/2022 Other Specified Disorders Of The Skin And Subcutaneous Tissue Related To Radiation 09/09/2022 Absence Of Breast Acquired Left 05/02/2022 Overview (05/02/2022): Added automatically from request for surgery [id number] Hyperlipidemia 05/02/2022 Hypertension Essential Primary 05/02/2022 Malignant Neoplasm Of Breast Central Female Left 07/16/2021 Cancer Staging:Pathologic stage from 03/19/2021:Stage IA(pT1c, pN0, cM0, G2, ER+, SC-, HER2-, Oncotype DX score: 27) - Signed by Carole Bacon APRN, C.N.P., M.S.N. on 07/16/2021 Immunizations Immunization Administration Dates Next Due RZV (SHINGRIX) 02/01/2021,11/17/2020 SARS-COV-2 (COVID-19) - MODERNA(Discontinued) 04/18/2021 Td (Adult), adsorbed 11/25/2018 Tdap 09/25/2008 influenza vaccine quad (FLUZONE/FLUARIX) (6 months and older)(PF) 01/09/2021,12/30/2019,02/18/2018,2016,01/31/2016,01/26/2015,02/11/2013,1 ,01/21/2011,02/14/2009 Family History Medical History Relation Name Comments Leukemia Brother 1 Robert Stroke Brother 2 Juan Coronary artery disease Father Tutu Diabetes Father Tutu Hyperlipidemia (high cholesterol) Father Tutu Hypertension Father Tutu Breast cancer (in one breast) Father's Sister Niru Diabetes Mother Amanda Hyperlipidemia (high cholesterol) Mother Amanda Hypertension Mother Amanda Osteoporosis Mother [...] by your partner or ex-partner? No 09/04/2022 Hunger Vital Sign Answer Date Recorded Within [...] things needed for daily living? No 09/04/2022 Housing Stability Answer Date Recorded What is [...] Comments Blood Pressure 137/81 03/20/2023 3:49 PM TACTICAL DECEPTION PLANS OFFICER Pulse 87 03/20/2023 3:49 PM TACTICAL DECEPTION PLANS OFFICER Temperature 37.3 C (99.1 F) 03/20/2023 3:49 PM TACTICAL DECEPTION PLANS OFFICER Respiratory Rate 16 03/20/2023 3:49 PM TACTICAL DECEPTION PLANS OFFICER Oxygen Saturation 95% 03/20/2023 3:49 PM TACTICAL DECEPTION PLANS OFFICER Inhaled Oxygen Concentration - - Weight 75.9 kg (167 lb 5.3 oz) 03/20/2023 6:24 A M TACTICAL DECEPTION PLANS OFFICER Height 163 cm (5' 4.17) 03/20/2023 6:24 AM TACTICAL DECEPTION PLANS OFFICER Body Mass Index 28.57 03/20/2023 6:24 AM TACTICAL DECEPTION PLANS OFFICER Plan of Treatment Health Maintenance Due Date Last Done Comments CT Colonography 1965 Cologuard 1965 Colonoscopy 1965 Colorectal Cancer Screening 1965 FIT 1965 HIV Screening 1965 Hepatitis C Screening 1965 Lipid (Cholesterol) Screening 1965 Office Visit for Blood Pressure Check / Re-check 1965 Hepatitis B Vaccines (1 of 3 - 19+ 3-dose series) 1984 Pneumococcal vaccine (50+ years) (1 of 1 - PCV) 11/10/2015 Cervical/Vaginal Cancer Screening 11/25/2021 11/25/2018 Creatinine Level (Kidney Function Test) 06/25/2023 06/24/2022, 01/26/2022, 09/24/2021 Potassium Level 07/25/2023 07/24/2022, 06/24/2022 Sodium Level 07/25/2023 07/24/2022, 06/24/2022 Depression Screening (Annual PHQ-2) 04/13/2024 COVID-19 Vaccine ( season) 2024 02/22/2024, 02/15/2023, 02/10/2022, Additional history exists Influenza Vaccine (#1) 2024 , 12/30/2019, 02/18/2018, Additional history exists Fasting Glucose for Diabetes Screening 06/24/2025 06/24/2022 DTaP,Tdap,and Td Vaccines (3 - Td or Tdap) 11/25/2028 11/25/2018, 09/25/2008 Zoster Vaccines Completed 02/01/2021, 11/17/2020 Mammogram Discontinued 06/24/2022, 01/12, 03/19/2021, Additional history exists IPV Vaccines Aged Out No longer eligi ble based on patient's age to complete this topic Medical Devices Implanted Type Area Butcher Scullion Device Identifier Shelf Expiration Date Model / Serial / Lot Clp Bibb Ti Spr Mcr 1.5 - [id number] Implanted:Qty : 1 on 07/23/2022 by Jackie Lees M.D. at [facility] Hardware e.g. pins/screws /rods [employer] [id number] / / Clp Bibb Ti Spr Mcr 1.5 - [id number] Implanted:Qty : 1 on 07/23/2022 by Jackie Lees M.D. at [facility] Hardware e.g. pins/screws /rods [employer] [id number] / / Clp Bibb Ti Spr Mcr 1.5 - [id number] Implanted:Qty : 1 on 07/23/2022 by Jackie Lees M.D. at [facility] Hardware e.g. pins/screws /rods [employer] [id number] / / Clp Bibb Ti Spr Mcr 1.5 - [id number] Implanted:Qty : 1 on 07/23/2022 by Jackie Lees M.D. at [facility] Hardware e.g. pins/screws /rods [employer] [id number] / / Clp Bibb Ti Spr Mcr 1.5 - [id number] Implanted:Qty : 1 on 07/23/2022 by Jackie Lees M.D. at [facility] Hardware e.g. pins/screws /rods [employer] [id number] / / Clp Bibb Ti Spr Mcr 1.5 - [id number] Implanted:Qty : 1 on 07/23/2022 by Jackie Lees M.D. at [facility] Hardware e.g. pins/screws /rods [employer] [id number] / / Clp Bibb Ti Spr Mcr 1.5 - [id number] Implanted:Qty : 1 on 07/23/2022 by Jackie Lees M.D. at [facility] Hardware e.g. pins/screws /rods [employer] [id number] / / Clp Bibb Ti Spr Mcr 1.5 - [id number] Implanted:Qty : 1 on 07/23/2022 by Jackie Lees M.D. at [facility] Hardware e.g. pins/screws /rods [employer] [id number] / / Clp Hrzn Ti 24 Clp Md Ck - [id number] Implanted:Qty : 1 on 07/23/2022 by Jackie Lees M.D. at [facility] Hardware e.g. pins/screws /rods [employer] [id number] / / Clp Hrzn Ti 24 Clp Sm Red - [id number] Implanted:Qty : 1 on 07/23/2022 by Jackie Lees M.D. at [facility] Hardware e.g. pins/screws /rods [employer] [id number] / / Clp Bibb Ti Mcr - [id number] Implanted:Qty : 1 on 07/23/2022 by Jackie Lees M.D. at [facility] Hardware e.g. pins/screws /rods [employer] [id number] / / Clp Hrzn Ti 24 Clp Sm Red - [id number] Implanted:Qty : 1 on 07/23/2022 by Jackie Lees M.D. at [facility] Hardware e.g. pins/screws /rods [employer] [id number] / / Clp Hrzn Ti 24 Clp Sm Red - [id number] Implanted:Qty : 1 on 07/23/2022 by Jackie Lees M.D. at [facility] Hardware e.g. pins/screws /rods [employer] [id number] / / Clp Hrzn Ti 24 Clp Sm Red - [id number] Implanted:Qty : 1 on 07/23/2022 by Jackie Lees M.D. at [facility] Hardware e.g. pins/screws /rods [employer] [id number] / / Clp Bibb Ti Mcr - [id number] Implanted:Qty : 1 on 07/23/2022 by Jackie Lees M.D. at [facility] Hardware e.g. pins/screws /rods [employer] [id number] 10/10/2026 [id number] / / [id number] Clp Bibb Ti Mcr - [id number] Implanted:Qty : 1 on 07/23/2022 by Jackie Lees M.D. at [facility] Hardware e.g. pins/screws /rods [employer] [id number] 10/10/2026 [id number] / / [id number] Clp Bibb Ti Mcr - [id number] Implanted:Qty : 1 on 07/23/2022 by Jackie Lees M.D. at [facility] Hardware e.g. pins/screws /rods [employer] [id number] 10/10/2026 [id number] / / [id number] Clp Bibb Ti Mcr - [id number] Implanted:Qty : 1 on 07/23/2022 by Jackie Lees M.D. at [facility] Hardware e.g. pins/screws /rods [employer] [id number] 10/10/2026 [id number] / / [id number] Clp Bibb Ti Spr Mcr 1.5 - [id number] Implanted:Qty : 1 on 07/23/2022 by Jackie Lees M.D. at [facility] Hardware e.g. pins/screws /rods [employer] [id number] 10/10/2026 [id number] / / [id number] Clp Bibb Ti Spr Mcr 1.5 - [id number] Implanted:Qty : 1 on 07/23/2022 by Jackie Lees M.D. at [facility] Hardware e.g. pins/screws /rods [employer] [id number] 10/10/2026 [id number] / / [id number] Property Clerk Flow 3.0 - [id number] Implanted:Qty : 1 on 07/23/2022 by Jackie Lees M.D. at [facility] Hardware e.g. pins/screws /rods Left: Breast [employer] [id number] 05/28/2027 [id number] C / / [id number] Clp Bibb Ti Mcr - [id number] Implanted:Qty : 1 on 07/23/2022 by Jackie Lees M.D. at [facility] Hardware e.g. pins/screws /rods [employer] [id number] / / Property Clerk Flow 3.0 - [id number] Implanted:Qty : 1 on 07/23/2022 by Jackie Lees M.D. at [facility] Hardware e.g. pins/screws /rods Right: Breast [employer] [id number] 05/28/2027 [id number] C / / [id number] Property Clerk Flow 3.0 - [id number] Implanted:Qty : 1 on 07/23/2022 by Jackie Lees M.D. at [facility] Hardware e.g. pins/screws /rods Right: Breast [employer] [id number] 05/09/2027 [id number] C / / [id number] Clp Bibb Ti Mcr - [id number] Implanted:Qty : 1 on 07/23/2022 by Jackie Lees M.D. at [facility] Hardware e.g. pins/screws /rods [employer] [id number] / / Clp Bibb Ti Mcr - [id number] Implanted:Qty : 1 on 07/23/2022 by Jackie Lees M.D. at [facility] Hardware e.g. pins/screws /rods [employer] [id number] / / Clp Bibb Ti Mcr - [id number] Implanted:Qty : 1 on 07/23/2022 by Jackie Lees M.D. at [facility] Hardware e.g. pins/screws /rods [employer] [id number] / / Clp Bibb Ti Mcr - [id number] Implanted:Qty : 1 on 07/23/2022 by Jackie Lees M.D. at [facility] Hardware e.g. pins/screws /rods [employer] [id number] / / Clp Bibb Ti Mcr - [id number] Implanted:Qty : 1 on 07/23/2022 by Jackie Lees M.D. at [facility] Hardware e.g. pins/screws /rods [employer] [id number] / / Clp Bibb Ti Mcr - [id number] Implanted:Qty : 1 on 07/23/2022 by Jackie Lees M.D. at [facility] Hardware e.g. pins/screws /rods [employer] [id number] / / Explanted Type Area Butcher Scullion Device Identifier Shelf Expiration Date Model / Serial / Lot Jaida 133s Tissue High Speed Printer Operator, Smooth Full Height, 600cc Implanted:Qty : 1 on 10/28/2021 by Jackie Lees M.D. at [facility] Explanted:Qty : 1 on 07/23/2022 by Jackie Lees M.D. at [facility] Breast Implant Left: Breast [employer] 04/14/2026 [id number] / [id number] / Procedures Procedure Name Priority Date/Time Associated [...] 3:36 AM CDT 07/24/2022 4:05 AM CDT us Wei Chua M.D. LAB BLOOD ADD-ON Final Resul t [address] [address], [facility] [address] [place] [address] * BI Breast Screening Right with Tomosynthesis (06/24/2022 11:29 AM CDT) Anatomical Region Laterality Modality Breast, Breast Imaging RST L OS, Breast Imaging ARZ LOS, Breast Imaging FLA LOS Right Mammography 06/24/2022 1:13 PM CDT Impressions 06/24/2022 2:02 PM CDT Benign. RECOMMENDATION: Annual Screening Mammogram ASSESSMENT: BI-RADS: 2: Benign. Narrative 06/24/2022 2:02 PM CDT EXAM: BI BREAST SCREENING RIGHT WITH TOMOSYNTHESIS Current study was evaluated with a Computer Aided Detection (CAD) system. INDICATION: Screening mammogram. COMPARISON: Prior exam(s) were available and reviewed for comparison. DENSITY: b. There are scattered areas of fibroglandular density. FINDINGS: No mammographic findings of malignancy. Postlumpectomy changes. Procedure [...] M.D. LAB BLOOD ADD-ON Final R esult [facility] [address] [place] [address], [facility] DTL [facility] [address] [place] [address] from Last 3 Months or Most Recently Relevant to Health Maintenance Insurance [facility] Care Teams Bowling Ball Finisher Relationship Specialty Start Date End Date Elsewhere, Pcp PCP - General Internal Medicine 10/28/21
--- OUTSIDE RECORDS SUMMARY | 2025-01-14 23:34 | XMS_ITS | Clinical Summary ---
Author Organization [employer] [facility] Address [address] [place] [address] Care Team Providers Care Clinical Data Assistant Name Role Phone Pcp, No Primary Care Provider Unavailabl e Allergies Active Allergy Reactions Criticality Noted Date Comments Sulfa (Sulfonamide Antibiotics) Rash 02/11 Medications atorvastatin (LIPITOR) 10 mg tablet Take 10 mg by mouth at bedtime. 3 01/07/2018 Active losartan-hydroch lorothiazide, 50-12.5 mg, (HYZAAR) 50-12.5 mg tablet Take 1 tablet by mouth once daily. 2 12/23/2017 Active Social History Tobacco Use Types Packs/Day Years Used Date Smoking Tobacco: Never Smokeless Tobacco: Never Comments No Sex and Gender Information Value Date Recorded Sex Assigned at Not on file Legal Sex Female 2:44 PM PRODUCT MANAGEMENT MANAGER Gender Identity Not on file Sexual Orientation Not on file Obstetrics History Last Filed Vital Signs Vital Sign Reading Time Taken Comments Blood Pressure 160/96 02/22/2018 3:09 PM PRODUCT MANAGEMENT MANAGER Pulse 94 02/22/2018 3:09 PM PRODUCT MANAGEMENT MANAGER Temperature - - Respiratory Rate - - Oxygen Saturation - - Inhaled Oxygen Concentration - - Weight 81.2 kg (179 lb) 02/22/2018 3:09 PM PRODUCT MANAGEMENT MANAGER Height 162.6 cm (5' 4) 02/22/2018 3:09 PM PRODUCT MANAGEMENT MANAGER Body Mass Index 30.73 02/22/2018 3:09 PM PRODUCT MANAGEMENT MANAGER Plan of Treatment Health Maintenance Due Date Last Done Comments Tetanus booster 1976 Depression screening for age 12+ 1977 HIV for age 15-65 1980 Hepatitis C screening for ag e 18-79 11/10/1983 Hepatitis B series for 19+ ( 1 of 3 - 19+ 3-dose series) 1984 Colonoscopy through age 75 2010 Lipids for age 45-75 2010 Mammogram for age 45-75 2010 Pneumococcal series for age 50+ (1 of 1 - PCV) 11/10/2015 Zoster (shingles) series for age 50+ (1 of 2) 11/10/2015 BMI (ht and wt on same day) for age 18+ 02/22/2019 02/22/2018 Pap test for age 21-65 11/25/2021 9, 11/25/2018, 06/01/2013, Additional history exists COVID-19 vaccine series ( - 2024- season) 2024 06/14/2020, 05/17/2020 Influenza Vaccine (#1) 2024 RSV vaccine for adults or (1 - 1-dose 75+ series) 2040 Procedures Procedure Name Priority Date/Time Associated Diagnosis Comments MONORAIL CHARGER OPERATOR THIN PREP PAP SCREEN IMAGED Routine 11/25/2018 8:30 AM CDT from Last 3 Months or Most Recently Relevant to Health Maintenance Results * MONORAIL CHARGER OPERATOR THIN PREP PAP SCREEN IMAGED (11/25/2018 8:30 AM CDT) Case Report Gynecologic Cytology Report Case: [id number] Authorizing Provider: Evangelista Bishop PA-C Collected: 11/25/2018 0830 Ordering Location: [facility] Received: 11/26/2018 1216 First Screen: Juma Orta Specimen: MONORAIL CHARGER OPERATOR ThinPrep Vial Screening, Cervical/Vaginal 12/05/2018 9:29 AM CDT [facility] INTERPRETATION/ RESULT NEGATIVE FOR INTRAEPITHELIAL LESION OR MALIGNANCY (NIL) (none) 12/05/2018 9:29 AM CDT [facility] at 0929 CDT SPECIMEN ADEQUACY Satisfactory for evaluation Endocervical cells cannot be evaluated due to severe atrophy 12/05/2018 9:29 AM CDT [facility] HPV REQUEST HPV and PAP 12/05/2018 9:29 AM CDT [facility] Date of LMP 11/25/2018 12/05/2018 9:29 AM CDT [facility] Last Pap Date 12/05/2018 9:29 AM CDT [facility] Comment:05/2013 Last Pap Result NIL 9:29 AM CDT [facility] Automated Review Successful 12/05/2018 9:29 AM CDT [facility] Comment:Specimen processed s uccessfully by automated brand marketing intern device, ThinPrep Imaging System, [employer] ANCILLARY TESTING MONORAIL CHARGER OPERATOR HPV Ordered, Please see separate report 12/05/2018 9:29 AM CDT [facility] Note The pap test is a screening technique, not a diagnostic procedure. It is used primarily to screen for squamous cancers and precursor lesions. Published studies have shown that it is subject to both false negative and false positive results. The pap test should not be used as the sole means to diagnose or exclude pre-malignant and malignant lesions. Cytology is screened and interpreted at [facility] - [address], [place] [address] and [facility] - [address]; [place] [address] and [facility] - [address]; [place] [address] and [facility] [address]; [place] [address] 12/05/2018 9:29 AM CDT [facility] Other (Cervical/Vagina l) 11/25/2018 8:30 AM CDT 11/26/2018 12:16 PM CDT us Evangelista Bishop PA-C PATHOLOGY/CYTOLOGY Final Resu lt [facility] [address] [place] [address], [place] from Last 3 Months or Most Recently Relevant to Health Maintenance Insurance [facility] Care Teams Clinical Data Assistant Relationship Specialty Start Date End Date Pcp, No . PCP - General 02/22/18
--- OUTSIDE RECORDS SUMMARY | 2025-01-14 23:34 | XMS_ITS ---
Author Organization [facility] Address [address] [place] [address] Care Team Providers Care Piano Regulator Name Role Phone Elsewhere, Pcp Primary Care Provider Unavailabl e Active Problems * This document contains information received from the source organization and may not represent a complete record from that organization. 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 on 07/16/2021 Current Treatment and Therapy Plans No current plan information found. Past Treatment and Therapy Plans
[2025-01-14 23:48] VITALS: BP 175/98; PULSE 91; RESP 18; TEMP 37.1; O2SAT 96; BMI 29.2
--- NOTE | 2025-01-14 23:51 | CRLHL7_ITS ---
For Patients: As a result of the Century Cures Act, medical imaging exams and procedure reports are released immediately into your electronic medical record. You may view this report before your referring provider. If you have questions, please contact your health care provider. Indication: Trauma. Technique: 3 views of the left ankle. Comparison: None. Findings/Impression: There is soft tissue swelling of the ankle. Nondisplaced acute fracture of the lateral malleolus. Talar dome maintains its normal contour without evidence of osteochondral injury. No dislocation. Ankle mortise maintained. Dictated by Dallas Huffman MD @ 01/15/2025 1:48:21 AM (Electronically Signed)
--- NOTE | 2025-01-15 02:12 | ED.LOWEXIN ---
HPI - Extremity Injury (Lower) General Time Seen by Provider: 02:12 Date Seen: 01/15/25 Chief Complaint: Extremity Pain/Injury, Lower Stated Complaint: left ankle injury Time Seen by Provider: 01/15/25 01:03 Source: patient Mode of arrival: ambulatory History of Present Illness HPI Narrative: Maddie is a 59-year-old female who presents the emergency department for evaluation of left lower extremity injury. Patient reports that was she was walking when she stepped into a pothole and rolled her left ankle. Patient complains severe left ankle pain, swelling. No other injuries or complaints. Related Data Home Medications ?Medication ?Instructions ?Recorded ?Confirmed aspirin 81 mg tablet,delayed 81 mg PO QDAY 11/18/21 10/13/24 release (Adult Aspirin Regimen) multivitamin (Multiple Vitamins 1 tab PO QDAY 11/18/21 10/13/24 tablet) cetirizine 10 mg tablet 10 mg PO DAILY 12/12/21 10/13/24 fluticasone propionate 50 1 spray intranasal QDAY PRN 02/27/22 10/13/24 mcg/actuation nasal spray,suspension (Flonase Allergy Relief) calcium 600 mg (as carbonate)-vit 1 tab PO BID 01/28/24 10/13/24 D3 10 mcg (400 unit) chewable tablet (Calcium 600 with Vitamin D3) cholecalciferol (vitamin D3) 50 50 mcg PO QDAY 08/11/24 10/13/24 mcg (2,000 unit) capsule Previous Rx's ?Medication ?Instructions ?Recorded ergocalciferol (vitamin D2) 1,250 1,250 mcg PO QWEEK #12 caps 10/26/23 mcg (50,000 unit) capsule (Vitamin D2) anastrozole 1 mg tablet 1 mg PO QDAY #90 tabs 01/28/24 atorvastatin 10 mg tablet 10 mg PO QHS #90 tabs 02/22/24 hydrochlorothiazide 12.5 mg tablet 12.5 mg PO DAILY #90 tabs 02/22/24 losartan 100 mg tablet 100 mg PO QDAY #90 tabs 02/22/24 Allergies Allergy/AdvReac Type Severity Reaction Status Date / Time pollen extracts Allergy Verified 10/13/24 12:12 Sulfa (Sulfonamide Allergy Verified 10/13/24 12:12 Antibiotics) Review of Systems Narrative: Past medical history, past surgical history, medications, allergies, family history, and social history were reviewed with the patient. No additional pertinent items. A medically appropriate review of systems was performed with pertinent positives and negatives noted in HPI, all other systems negative. [facility] Medical History Acute UTI ?N39.0 - Urinary tract infection, site not specified (ICD-10) De Quervain's tenosynovitis, right ?M65.4 - Radial styloid tenosynovitis [de Quervain] (ICD-10) Ductal carcinoma in situ of right breast (~06/2008) ?D05.11 - Intraductal carcinoma in situ of right breast (ICD-10) Wound dehiscence ?T81.30XA - Disruption of wound, unspecified, initial encounter (ICD-10) Lymphadenopathy ?R59.1 - Generalized enlarged lymph nodes (ICD-10) Status post chemotherapy ?Z92.21 - Personal history of antineoplastic chemotherapy (ICD-10) Status post radiation therapy ?Z92.3 - Personal history of irradiation (ICD-10) Sinusitis (04/2017) ?J32.9 - Chronic sinusitis, unspecified (ICD-10) History of hyperbaric oxygen therapy ?Z92.89 - Personal history of other medical treatment (ICD-10) Malignant neoplasm of breast (10/22/12) ?C50.919 - Malignant neoplasm of unspecified site of unspecified female breast (ICD-10) Carpal tunnel syndrome ?G56.00 - Carpal tunnel syndrome, unspecified upper limb (ICD-10) Right wrist pain ?M25.531 - Pain in right wrist (ICD-10) Surgical History Status post trigger finger release (03/02/18) ?Z98.890 - Other specified postprocedural states (ICD-10) History of tonsillectomy (1974) ?Z90.89 - Acquired absence of other organs (ICD-10) Status post breast lumpectomy (10/22/12) ?Z98.890 - Other specified postprocedural states (ICD-10) S/P left mastectomy (~03/19/21) ?Z90.12 - Acquired absence of left breast and nipple (ICD-10) Status post right breast lumpectomy (07/11/08) ?Z98.890 - Other specified postprocedural states (ICD-10) Social History (Updated 02/22/24 @ 15:29 by Juany Clayton ~ MOCK UP ASSEMBLER, MOCK UP ASSEMBLER) Narrative: Non-smoker What is your current living situation?: I presently have a place to live In the past 12 months, utilities in danger of being shut off: no In past 12 months, lack of transportation kept you from medical appts, meetings, work, or getting things needed for daily living: no In the past 12 mos, have been you worried that your food would run out before you had money to buy more?: never true In the past 12 mos, the food you bought just didn't last and you didn't have money to buy more?: never true Smoking Status: Never smoker How often does anyone, including family, friends and others, physically hurt you: never How often does anyone, including family, friends and others, insult or talk down to you: never How often does anyone, including family, friends and others, threaten you with harm: never How often does anyone, including family, friends and others, scream or curse at you: never Exam Narrative: Exam Narrative: General: Afebrile, no acute distress HEENT: Normocephalic, atraumatic, conjunctiva normal. MMM Neck: non-tender, supple Cardio: regular rate. regular rhythm Resp: Normal work of breathing, no respiratory distress, lungs clear bilaterally, no wheezing, rhonchi, rales Chest/Back: no visual signs of trauma, no midline tenderness, no CVA tenderness Abdomen: soft, non distension, no tenderness, no peritoneal signs Neuro: alert and fully oriented. CN II-XII grossly intact. Grossly normal strength and sensation in all extremities. MSK: +left lateral ankle with swelling, +TTP, distally NVI with dp and pt pulse present b/l Integumentary/Skin: no rash visualized, normal color Psych: normal affect, normal behavior Const: Vital Signs, click to edit/add: Vital Signs - 24 hr 01/14/25 23:48 Temperature 98.7 F Pulse Rate [Pulse Oximeter] 91 Respiratory Rate 18 Blood Pressure [Le ft Upper Arm] 175/98 H Pulse Oximetry 96 Oxygen Delivery Me thod Room Air Course Vital Signs Vital signs: Initial Vital Signs Temperature 98.7 F 01/14/25 23:48 Temperature Source Temporal Artery Scan 01/14/25 23:48 Pulse Rate 91 01/14/25 23:48 Pulse Rhythm Regular 01/14/25 23:48 Respiratory Rate 18 01/14/25 23:48 Blood Pressure 175/98 H 01/14/25 23:48 Blood Pressure Mean 123 H 01/14/25 23:48 Blood Pressure Position Sitting 01/14/25 23:48 Pulse Oximetry 96 01/14/25 23:48 Oxygen Delivery Method Room Air 01/14/25 23:48 Vital Signs Temperature 98.7 F 01/14/25 23:48 Pulse Rate 91 01/14/25 23:48 Respiratory Rate 18 01/14/25 23:48 Blood Pressure 175/98 H 01/14/25 23:48 Pulse Oximetry 96 01/14/25 23:48 Oxygen Delivery Method Room Air 01/14/25 23:48 Temperature 98.7 F 01/14/25 23:48 Pulse Rate 91 01/14/25 23:48 Respiratory Rate 18 01/14/25 23:48 Blood Pressure 175/98 H 01/14/25 23:48 Pulse Oximetry 96 01/14/25 23:48 Oxygen Delivery Method Room Air 01/14/25 23:48 MDM - Extremity Injury (Lower) MDM Narrative Medical decision making narrative: Maddie is a 59-year-old female who presents the emergency department for evaluation of left lower extremity injury. Upon arrival patient is nontoxic appearing, afebrile, no distress. Differential diagnosis includes but is not limited to fracture versus dislocation versus sprain versus contusion among others. I personally reviewed interpreted x-ray of the left ankle which demonstrates soft tissue swelling, nondisplaced acute fracture of the lateral malleolus. Talar dome maintains normal contour. No dislocation. I discussed results with patient. Patient was placed in cam boot, discuss immobilization, nonweightbearing, and close outpatient follow-up with orthopedics. Appointment has been made for 01/19 at 9:[address] Romel Andre. Recommend ice, elevation, Tylenol, ibuprofen. Return precautions discussed. Patient understands and agrees with the plan. Medical Records Attestation: I reviewed the patient's medical records. Imaging Data X-ray ankle: Attestation: I have reviewed the pertinent imaging results. Radiologist's impression: Findings/Impression: There is soft tissue swelling of the ankle. Nondisplaced acute fracture of the lateral malleolus. Talar dome maintains its normal contour without evidence of osteochondral injury. No dislocation. Ankle mortise maintained. Discharge Plan Discharge Clinical Impression: Ankle fracture, lateral malleolus, closed Patient Disposition: Home, Self-Care Condition: Stable Additional Instructions: Please follow-up with orthopedics this coming 01/19/2025 at 9:[address] Romel Andre. Please keep your left lower extremity immobilize in the boot and do not bear weight on your left lower extremity into you follow-up with orthopedics. Please ice, elevate while at rest. Please alternate taking Tylenol and ibuprofen as needed for pain. Return to the emergency department if you develop any worsening symptoms. It was a pleasure taking care of you today. We hope you feel better soon. Prescriptions: No Action ergocalciferol (vitamin D2) [Vitamin D2] 1,250 mcg (50,000 unit) capsule 1,250 mcg PO QWEEK Qty: 12 0RF Rx Instructions: Take once a week for 8 weeks and then once a month for 4 months. anastrozole 1 mg tablet 1 mg PO QDAY Qty: 90 3RF atorvastatin 10 mg tablet 10 mg PO QHS Qty: 90 3RF hydrochlorothiazide 12.5 mg tablet 12.5 mg PO DAILY Qty: 90 3RF losartan 100 mg tablet 100 mg PO QDAY Qty: 90 3RF cetirizine 10 mg tablet 10 mg PO DAILY Calcium 600 with Vitamin D3 600 mg-10 mcg (400 unit) tablet,chewable 1 tab PO BID fluticasone propionate [Flonase Allergy Relief] 50 mcg/actuation spray,suspension 1 spray intranasal QDAY PRN Rx Instructions: administer into each nostril cholecalciferol (vitamin D3) 50 mcg (2,000 unit) capsule 50 mcg PO QDAY aspirin [Adult Aspirin Regimen] 81 mg tablet,delayed release (DR/EC) 81 mg PO QDAY multivitamin [Multiple Vitamins] Tablet 1 tab PO QDAY Follow Up/Referrals: Evangelista Bishop PA-C [Primary Care Provider, Family Practice] Stand Alone Forms: MyHealth Info Instructions
--- OUTSIDE RECORDS SUMMARY | 2025-01-15 02:49 | XMS_ITS | Clinical Summary ---
Author Organization [facility] Address [address] [place] [address] Care Team Providers Care Oil And Gas Well Treatment Operator Name Role Phone Elsewhere, Pcp Primary Care Provider Unavailabl e Source Comments Patient records contain information from all sites at [facility]. For routine questions regarding patient records, call [phone] during business hours, M-F 8:00 AM - 5:00 PM Central Time. Record requests for emergency care only can be directed to [phone] at any time.[facility] Allergies Active Allergy Reactions Criticality Noted Date [...] 50 mg by mouth daily. 2 Active bvvcxxsoddyh-Nz-ob on-minerals tablet Take 1 tablet by mouth [...] or vomiting. 20 tablet 03/20/2023 2:50 PM AUTOMOBILE RADIATOR MECHANIC 3 Active IBUPROFEN ORAL Activ e cephalexin [...] (05/02/2022): Added automatically from request for surgery [id number] Hyperlipidemia 05/02/2022 Hypertension Essential Primary 05/02/2022 Malignant Neoplasm Of Breast Central Female Left 07/16/2021 Cancer Staging:Pathologic stage from 03/19/2021:Stage IA(pT1c, pN0, cM0, G2, ER+, HI-, HER2-, Oncotype DX score: 27) - Signed [...] Comments Blood Pressure 137/81 03/20/2023 3:49 PM AUTOMOBILE RADIATOR MECHANIC Pulse 87 03/20/2023 3:49 PM AUTOMOBILE RADIATOR MECHANIC Temperature 37.3 C (99.1 F) 03/20/2023 3:49 PM AUTOMOBILE RADIATOR MECHANIC Respiratory Rate 16 03/20/2023 3:49 PM AUTOMOBILE RADIATOR MECHANIC Oxygen Saturation 95% 03/20/2023 3:49 PM AUTOMOBILE RADIATOR MECHANIC Inhaled Oxygen Concentration - - Weight 75.9 kg (167 lb 5.3 oz) 03/20/2023 6:24 A M AUTOMOBILE RADIATOR MECHANIC Height 163 cm (5' 4.17) 03/20/2023 6:24 AM AUTOMOBILE RADIATOR MECHANIC Body Mass Index 28.57 03/20/2023 6:24 AM AUTOMOBILE RADIATOR MECHANIC Plan of Treatment Health Maintenance Due Date [...] this topic Medical Devices Implanted Type Area Throat Cutter Device Identifier Shelf Expiration Date Model / Serial / Lot Clp [place] Ti Spr Mcr 1.5 - [id number] Implanted:Qty : 1 on 07/23/2022 by Jackie Lees M.D. at [facility] Hardware e.g. pins/screws /rods [employer]is [id number] / / Clp [place] Ti Spr Mcr 1.5 - [id number] Implanted:Qty : 1 on 07/23/2022 by Jackie Lees M.D. at [facility] Hardware e.g. pins/screws /rods [employer]is [id number] / / Clp [place] Ti Spr Mcr 1.5 - [id number] Implanted:Qty : 1 on 07/23/2022 by Jackie Lees M.D. at [facility] Hardware e.g. pins/screws /rods [employer] [id number] / / Clp [place] Ti Spr Mcr 1.5 - [id number] Implanted:Qty : 1 on 07/23/2022 by Jackie Lees M.D. at [facility] Hardware e.g. pins/screws /rods [employer] [id number] / / Clp [place] Ti Spr Mcr 1.5 - [id number] Implanted:Qty : 1 on 07/23/2022 by Jackie Lees M.D. at [facility] Hardware e.g. pins/screws /rods [employer] [id number] / / Clp [place] Ti Spr Mcr 1.5 - [id number] Implanted:Qty : 1 on 07/23/2022 by Jackie Lees M.D. at [facility] Hardware e.g. pins/screws /rods [employer] [id number] / / Clp [place] Ti Spr Mcr 1.5 - [id number] Implanted:Qty : 1 on 07/23/2022 by Jackie Lees M.D. at [facility] Hardware e.g. pins/screws /rods [employer] [id number] / / Clp [place] Ti Spr Mcr 1.5 - [id number] Implanted:Qty : 1 on 07/23/2022 by Jackie Lees M.D. at [facility] Hardware e.g. pins/screws /rods [employer] [id number] / / Clp Hrzn Ti 24 Clp Md Ck - [id number] Implanted:Qty : 1 on 07/23/2022 by Jackie Lees M.D. at [facility] Hardware e.g. pins/screws /rods [employer] [id number] / / Clp Hrzn Ti 24 Clp Sm Red - [id number] Implanted:Qty : 1 on 07/23/2022 by Jackie Lees M.D. at [facility] Hardware e.g. pins/screws /rods [employer] [id number] / / Clp [place] Ti Mcr - [id number] Implanted:Qty : 1 on 07/23/2022 by Jackie Lees M.D. at [facility] Hardware e.g. pins/screws /rods [employer] [id number] / / Clp Hrzn Ti 24 Clp Sm Red - [id number] Implanted:Qty : 1 on 07/23/2022 by Jackie Lees M.D. at [facility] Hardware e.g. pins/screws /rods [employer] [id number] / / Clp Hrzn Ti 24 Clp Sm Red - [id number] Implanted:Qty : 1 on 07/23/2022 by Jackie Lees M.D. at [facility] Hardware e.g. pins/screws /rods [employer] [id number] / / Clp Hrzn Ti 24 Clp Sm Red - [id number] Implanted:Qty : 1 on 07/23/2022 by Jackie Lees M.D. at [facility] Hardware e.g. pins/screws /rods [employer] [id number] / / Clp [place] Ti Mcr - [id number] Implanted:Qty : 1 on 07/23/2022 by Jackie Lees M.D. at [facility] Hardware e.g. pins/screws /rods [employer] [id number] 10/10/2026 [id number] / / [id number] Clp [place] Ti Mcr - [id number] Implanted:Qty : 1 on 07/23/2022 by Jackie Lees M.D. at [facility] Hardware e.g. pins/screws /rods [employer] [id number] 10/10/2026 [id number] / / [id number] Clp [place] Ti Mcr - [id number] Implanted:Qty : 1 on 07/23/2022 by Jackie Lees M.D. at [facility] Hardware e.g. pins/screws /rods [employer] [id number] 10/10/2026 [id number] / / [id number] Clp [place] Ti Mcr - [id number] Implanted:Qty : 1 on 07/23/2022 by Jackie Lees M.D. at [facility] Hardware e.g. pins/screws /rods [employer] [id number] 10/10/2026 [id number] / / [id number] Clp [place] Ti Spr Mcr 1.5 - [id number] Implanted:Qty : 1 on 07/23/2022 by Jackie Lees M.D. at [facility] Hardware e.g. pins/screws /rods [employer] [id number] 10/10/2026 [id number] / / [id number] Clp [place] Ti Spr Mcr 1.5 - [id number] Implanted:Qty : 1 on 07/23/2022 by Jackie Lees M.D. at [facility] Hardware e.g. pins/screws /rods [employer] [id number] 10/10/2026 [id number] / / [id number] Tubing Machine Operator Flow 3.0 - [id number] Implanted:Qty : 1 on 07/23/2022 by Jackie Lees M.D. at [facility] Hardware e.g. pins/screws /rods Left: Breast [employer] [id number] 05/28/2027 [id number] C / / [id number] Clp [place] Ti Mcr - [id number] Implanted:Qty : 1 on 07/23/2022 by Jackie Lees M.D. at [facility] Hardware e.g. pins/screws /rods [employer] [id number] / / Tubing Machine Operator Flow 3.0 - [id number] Implanted:Qty : 1 on 07/23/2022 by Jackie Lees M.D. at [facility] Hardware e.g. pins/screws /rods Right: Breast [employer] [id number] 05/28/2027 [id number] C / / [id number] Tubing Machine Operator Flow 3.0 - [id number] Implanted:Qty : 1 on 07/23/2022 by Jackie Lees M.D. at [facility] Hardware e.g. pins/screws /rods Right: Breast [employer] [id number] 05/09/2027 [id number]-P C / / [id number] Clp [place] Ti Mcr - [id number] Implanted:Qty : 1 on 07/23/2022 by Jakcie Lees M.D. at [facility] Hardware e.g. pins/screws /rods [employer] [id number] / / Clp [place] Ti Mcr - [id number] Implanted:Qty : 1 on 07/23/2022 by Jackie Lees M.D. at [facility] Hardware e.g. pins/screws /rods [employer] [id number] / / Clp [place] Ti Mcr - [id number] Implanted:Qty : 1 on 07/23/2022 by Jackie Lees M.D. at [facility] Hardware e.g. pins/screws /rods [employer]is [id number] / / Clp [place] Ti Mcr - [id number] Implanted:Qty : 1 on 07/23/2022 by Jackie Lees M.D. at [facility] Hardware e.g. pins/screws /rods [employer]is [id number] / / Clp [place] Ti Mcr - [id number] Implanted:Qty : 1 on 07/23/2022 by Jackie Lees M.D. at [facility] Hardware e.g. pins/screws /rods [employer] [id number] / / Clp [place] Ti Mcr - [id number] Implanted:Qty : 1 on 07/23/2022 by Jackie Lees M.D. at [facility] Hardware e.g. pins/screws /rods [employer] [id number] / / Explanted Type Area Throat Cutter Device Identifier Shelf Expiration Date Model / Serial / Lot Jaida 133s Tissue Desolderer, Smooth Full Height, 600cc Implanted:Qty : 1 on 10/28/2021 by Jackie Lees M.D. at [facility] Explanted:Qty : 1 on 07/23/2022 by Jackie Lees M.D. at [facility] Breast Implant Left: Breast [employer] 04/14/2026 [id number]-T / [id number] / Procedures Procedure Name Priority Date/Time Associated [...] M.D. LAB BLOOD ADD-ON Final Resul t [address] [address], [facility] [address] [place] [address] * BI Breast Screening Right with Tomosynthesis [...] M.D. LAB BLOOD ADD-ON Final R esult [facility] [place] [address] [place] [address], [facility] DTL [facility] [address] [place] [address] from Last 3 Months or Most Recently Relevant to Health Maintenance Insurance [facility] Care Teams Oil And Gas Well Treatment Operator Relationship Specialty Start Date End Date Elsewhere, Pcp PCP - General Internal Medicine 10/28/21
--- OUTSIDE RECORDS SUMMARY | 2025-01-15 02:49 | XMS_ITS | Clinical Summary ---
Author Organization [facility] Address [address] [place] [id number] Care Team Providers Care Brokerage Clerk Name Role Phone Pcp, No Primary Care [...] on file Legal Sex Female 2:44 PM SCRAP PREPARER Gender Identity Not on file Sexual Orientation Not on file Obstetrics History Last Filed Vital Signs Vital Sign Reading Time Taken Comments Blood Pressure 160/96 02/22/2018 3:09 PM SCRAP PREPARER Pulse 94 02/22/2018 3:09 PM SCRAP PREPARER Temperature - - Respiratory Rate - - Oxygen Saturation - - Inhaled Oxygen Concentration - - Weight 81.2 kg (179 lb) 02/22/2018 3:09 PM SCRAP PREPARER Height 162.6 cm (5' 4) 02/22/2018 3:09 PM SCRAP PREPARER Body Mass Index 30.73 02/22/2018 3:09 PM SCRAP PREPARER Plan of Treatment Health Maintenance Due Date [...] Procedure Name Priority Date/Time Associated Diagnosis Comments COURSE INSTRUCTOR THIN PREP PAP SCREEN IMAGED Routine 11/25/2018 8:30 AM CDT from Last 3 Months or Most Recently Relevant to Health Maintenance Results * COURSE INSTRUCTOR THIN PREP PAP SCREEN IMAGED (11/25/2018 8:30 AM CDT) Case Report Gynecologic Cytology Report Case: [id number] Authorizing Provider: Evangelista Bishop PA-C Collected: 11/25/2018 0830 Ordering Location: [facility] Received: 11/26/2018 1216 First Screen: Juma Orta Specimen: COURSE INSTRUCTOR ThinPrep Vial Screening, Cervical/Vaginal 12/05/2018 9:29 AM CDT [facility] INTERPRETATION/ RESULT NEGATIVE FOR INTRAEPITHELIAL LESION OR MALIGNANCY (NIL) (none) 12/05/2018 9:29 AM CDT [facility] at 0929 CDT SPECIMEN ADEQUACY Satisfactory for evaluation Endocervical cells cannot be evaluated due to severe atrophy 12/05/2018 9:29 AM CDT [facility] HPV REQUEST HPV and PAP 12/05/2018 9:29 AM CDT [facility] Date of LMP 11/25/2018 12/05/2018 9:29 AM CDT [facility] Last Pap Date 12/05/2018 9:29 AM CDT [facility] Comment:05/2013 Last Pap Result NIL 9:29 AM CDT [facility] Automated Review Successful 12/05/2018 9:29 AM CDT [facility] Comment:Specimen processed s uccessfully by automated fish inspector device, ThinPrep Imaging System, [employer] ANCILLARY TESTING COURSE INSTRUCTOR HPV Ordered, Please see separate report 12/05/2018 9:29 AM CDT [facility] Note The pap test is a [...] lesions. Cytology is screened and interpreted at [facility] - [address], [place] [address] and [facility] - [address]; [place] [address] and [facility] - [address]; [place] [address] and [facility] [address]; [place] [address] 12/05/2018 9:29 AM CDT [facility] Other (Cervical/Vagina l) 11/25/2018 8:30 AM CDT 11/26/2018 12:16 PM CDT us Evangelista Bishop PA-C PATHOLOGY/CYTOLOGY Final Resu lt [facility] [address] [place] [address], [place] from Last 3 Months or Most Recently Relevant to Health Maintenance Insurance [facility] Care Teams Brokerage Clerk Relationship Specialty Start Date End Date Pcp, No . PCP - General 02/22/18
--- OUTSIDE RECORDS SUMMARY | 2025-01-15 02:49 | XMS_ITS ---
Author Name Interface, [id number] lity Address [address] [id number] [facility] Address [address] [address] Allergies and Adverse Reactions Plan Reason for Visit Encounters Immunizations Medications Problems Vital Signs
--- OUTSIDE RECORDS SUMMARY | 2025-01-15 02:49 | XMS_ITS | CCD ---
Author Name Interface, [id number] lity Address [address] [address] [facility] Address [address] [address] Allergies and Adverse Reactions Reason for Visit Medications Problems Social History
--- OUTSIDE RECORDS SUMMARY | 2025-01-15 02:50 | XMS_ITS ---
Author Name Interface, [id number] lity Address [address] [id number] [facility] Address [address] [address] Allergies and Adverse Reactions Plan Reason for Visit Encounters Immunizations Medications Problems Vital Signs
--- OUTSIDE RECORDS SUMMARY | 2025-01-15 02:50 | XMS_ITS ---
Author Organization [facility] Address [address] [place] [address] Care Team Providers [employer] Name Role Phone Elsewhere, Pcp Primary Care [...] (05/02/2022): Added automatically from request for surgery [id number] Hyperlipidemia 05/02/2022 Hypertension Essential Primary 05/02/2022 Malignant Neoplasm Of Breast Central Female Left 07/16/2021 Cancer Staging:Pathologic stage from 03/19/2021:Stage IA(pT1c, pN0, cM0, G2, ER+, CA-, HER2-, Oncotype DX score: 27) - Signed by Carole Bacon, CHANI, C.N.P., M.S.N. on 07/16/2021 Current Treatment and Therapy Plans No current plan information found. Past Treatment and Therapy Plans
--- OUTSIDE RECORDS SUMMARY | 2025-01-15 02:50 | XMS_ITS | CCD ---
Author Name Interface, [id number] lity Address [address] [address] [facility] Address [address] [address] Allergies and Adverse Reactions Reason for Visit Medications Problems Social History
[2025-01-15 02:52] VITALS: BP 154/81; PULSE 85; RESP 18; TEMP 37.1; O2SAT 96
[2025-01-15 02:53] VITALS: BP 154/81; PULSE 85; RESP 18; TEMP 37.1
== END 2025-01-15 02:53 | disposition home or self-care (01) ==
LOC: ED 01-15 02:47
PROVIDERS: Emergency Provider Emergency Medicine; PCP Physician Assistant Medical
DX: S82.65XA Nondisplaced fracture of lateral malleolus of left fibula, initial encounter for closed fracture (principal); X50.1XXA Overexertion from prolonged static or awkward postures, initial encounter
CPT/HCPCS: 73610; 99283; 99284

== ENCOUNTER 2025-03-29 15:00 | Outpatient (CLI) | payer BC, SELFPAY ==
[2025-03-31 13:06] LABS: HPV Source Cervical
[2025-04-05 08:21] LABS: Pap Test Digital Imaging Done
== END 2025-03-29 15:01 | disposition home or self-care (01) ==
PROVIDERS: PCP Physician Assistant Medical; Visit Provider Physician Assistant Medical
DX: Z01.419 Encounter for gynecological examination (general) (routine) without abnormal findings (principal); I10 Essential (primary) hypertension; E78.2 Mixed hyperlipidemia
CPT/HCPCS: 80053; 80061; 84443; 87624; 87625; 88141; 88142; 88175

== ENCOUNTER 2025-04-07 07:15 | Outpatient (CLI) | payer BC, SELFPAY | END 2025-04-07 07:16 | disposition home or self-care (01) | LOC: NFLDREF 04-10 14:41 | PROVIDERS: PCP Physician Assistant Medical; Referring Provider Physician Assistant Medical; Visit Provider Nurse Practitioner Family | DX: N30.00 Acute cystitis without hematuria (principal) | CPT/HCPCS: 87086 ==